=== PATIENT | male | born 1945 | race Caucasian/White ===

== ENCOUNTER → 2018-03-18 14:56 | Outpatient (CLI) | payer MEDICARE, MEDICAID, SELFPAY ==
--- NOTE | 2018-03-18 15:07 | RAD_ITS ---
STUDY: X-RAY - LUMBAR SPINE REASON FOR EXAM: Male, 72 years old. SHARP LOW BACK PAIN. NO INJURY TECHNIQUE: 4 view(s) of the lumbar spine were obtained. COMPARISON: None FINDINGS: Normal lumbar lordosis. There is scoliosis. There is a normal alignment of the vertebrae. There is bilateral facet arthropathy. There is multilevel endplate spondylosis of the lumbar vertebrae. There is multi-level degenerative disc disease with multi-level disc space narrowing. There are atherosclerotic vascular calcifications. The soft tissue structures are unremarkable. RAD/L/S Spine Min 4 Views IMPRESSION: Degenerative changes of the spine, as detailed above. Electronically Signed: Keenan Gannon MD at 16:35 EDT , Service support ,
== END ==
PROVIDERS: Family Provider Internal Medicine; PCP Internal Medicine; Visit Provider Nurse Practitioner Gerontology
DX: M47.896 Other spondylosis, lumbar region (principal); M51.36 Other intervertebral disc degeneration, lumbar region; M48.061 Spinal stenosis, lumbar region without neurogenic claudication
CPT/HCPCS: 72110

== ENCOUNTER → 2018-06-08 11:44 | Outpatient (CLI) | payer MEDICARE, MEDICAID, SELFPAY ==
--- NOTE | 2018-06-08 11:50 | RAD_ITS ---
STUDY: X-RAY CHEST REASON FOR EXAM: Male, 72 years old. 2 week history of cough. TECHNIQUE: Single AP portable view of the chest. COMPARISON: None. FINDINGS: Hyperinflation. Mild increased linear markings at the left lung base suggests underlying atelectasis and/or scarring. No focal infiltrate is seen. There is no demonstrated pleural abnormality. Normal size heart. Normal mediastinum and davis. Normal visualized pulmonary arteries. Normal visualized aortic arch and descending thoracic aorta. There are diffuse degenerative changes of the visualized thoracic spine. Normal visualized ribs, clavicles, and shoulders. There is no demonstrated abnormality of the visualized soft tissue structures of the upper abdomen. RAD/Chest 1 View IMPRESSION: Hyperinflation. Stable mild increased linear markings at the left lung base suggesting scarring. Electronically Signed: Tyree Oh MD at 12:47 EDT Tel [phone], Service support ,
== END ==
PROVIDERS: Family Provider Internal Medicine; PCP Internal Medicine; Visit Provider Nurse Practitioner
DX: J40 Bronchitis, not specified as acute or chronic (principal)
CPT/HCPCS: 71045

== ENCOUNTER → 2018-06-23 12:32 | Outpatient (CLI) | payer MEDICARE, MEDICAID, SELFPAY ==
[2018-06-23 13:11] LABS: PSA,Total - Annual Screen 3.02 ng/mL (0.00-4.00)
== END ==
PROVIDERS: Family Provider Internal Medicine; PCP Internal Medicine; Visit Provider Urology
DX: Z12.5 Encounter for screening for malignant neoplasm of prostate (principal)
CPT/HCPCS: 36415; 84153; G0103

== ENCOUNTER → 2019-03-23 07:50 | Outpatient (CLI) | payer MEDICARE, MEDICAID, SELFPAY ==
--- NOTE | 2019-03-23 10:28 | NEURO ---
NCS and/or EMG Patient Report Ordering Doctor: Halley Pickens DATE OF SERVICE: 03/23/19 This is a right lower extremity EMG and bilateral lower extremity nerve conduction study performed on this 73-year-old male with pain and muscle cramps in his legs below his knees bilaterally for approximately 1 year. He also describes numbness and tingling. He is healthy otherwise without a history of diabetes. There is a previous history of significant alcohol use however he discontinued this at least one year prior to the onset of his current symptoms. On brief neurologic examination he does have high arches with decreased sensation in his feet bilaterally symmetrically. Bilateral lower extremity sensory and motor nerve conduction studies performed. The sural sensory responses are normal. The motor conduction velocities are diffusely mild to moderately slowed, with mild to moderate prolongation of distal latencies and suppression of amplitudes. F-wave latencies from the tibial and common peroneal nerves bilaterally are mild to moderately prolonged and H reflex amplitudes are suppressed from the bilateral tibial nerves. Right lower extremity needlelike tomography is performed. Muscles evaluated included the extensor digitorum brevis, abductor hallucis, medial gastrocnemius, anterior tibialis, vastus medialis and vastus lateralis muscles. Peripheral muscles demonstrated early recruitment with large motor units but absence of pathologic spontaneous activity. More proximal muscles demonstrated resolution of these abnormalities with normal insertional activity, normal motor units, and normal recruitment pattern. 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 Further testing could include serum B12 levels, inflammatory markers, serum and urine protein electrophoresis, and hepatic function studies.
== END ==
PROVIDERS: Family Provider Internal Medicine; PCP Internal Medicine; Referring Provider Internal Medicine; Visit Provider Internal Medicine
DX: R20.2 Paresthesia of skin (principal)
CPT/HCPCS: 95886; 95910

== ENCOUNTER 2019-06-17 07:46 | Outpatient (RCR) | payer MEDICARE, MEDICAID, SELFPAY ==
--- NOTE | 2019-06-17 14:42 | HP.OTFCE.D ---
FCE D/C Summary - Discharge PHI PATEL was seen for a one time visit for an FCE on 06/17/19 and is discharged.
--- NOTE | 2019-06-17 14:42 | HP.OTFCE_ITS ---
HP OT Functional Capacity Eval - Task Lift Floor (Occasional 1-33% of Day): 30 Floor (Frequent 34-66% of Day): 15 Floor (Constant 67-100% of Day): negligible Floor PDL: Light Knee (Occasional 1-33% of Day): 25 Knee (Frequent 34-66% of Day): 12.5 Knee (Constant 67-100% of Day): negligible Knee PDL: Light Waist (Occasional 1-33% of Day): 25 Waist (Frequent 34-66% of Day): 12 Waist (Constant 67-100% of Day): negligible Waist PDL: Light Shoulder (Occasional 1-33% of Day): 15 Shoulder (Frequent 34-66% of Day): 8 Shoulder (Constant 67-100% of Day): negligible Shoulder PDL: Sedentary-Light Overhead (Occasional 1-33% of Day): negligible Overhead (Frequent 34-66% of Day): negligible Overhead (Constant 67-100% of Day): negligible Overhead PDL: Sedentary Comments: Based on performance with material handling tasks, Carlos exhibited increased compensations and 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 These mechanical deficits and compensations included increased observation of unequal load distribution, lateral leaning to left side, and general range of motion deficits. It would not be recommended he continues frequent lifting or material handling tasks at this time based on performance and compensation and deficits o bserved. - Work Activity/Posture Bending: Frequent Ability (34-66% of day) Squatting: Occasional Ability (1-33% of day) Comments: 1-10% Kneeling: No Ablility (0% of day) Comments: cannot compleetd safely Reaching out: Occasional Ability (1-33% of day) Reaching up: Occasional Ability (1-33% of day) Comments: Should avoid. Can complete but often completes one handed. Sitting: Frequent Ability (34-66% of day) Walking: Occasional Ability (1-33% of day) Standing: Frequent Ability (34-66% of day) - Reference Duration Sedentary Sedentary Light Light Light Medium Medium Medium Heavy Very Heavy Heavy Occasional (0-33% of day) Frequent (34-66% of day) Constant (67-100% of day) 10 # Negligible Negligible 15 # 8 # Negligible 20 # 10# Negli. 35 # 18 # 7 # 50 # 25 # 10 # 75 # 100 # >100 # 38 # 50 # >50 # 15 # 20 # >20 # - Patient Information Height: 1.83 m Weight:: 82.024 kg Hand Dominance: R BP (Medication Use/Usual Values per pt report): No - Medical History Medical History Including Restrictions: No medical restrictions given to him by his doctor. - Diagnoses Diagnoses: Current: Feels he has exhibit increase decline in function in right upper extremity s/p past orthopedic injury occurring in [facility]. Past Medical History: ulnar transposition, carpal tunnel; release R hand; arthritis, and chronic low back pain per patient report. Medications: - finasteride 5 mg. - doxazosin 4 mg. - tadalafil 5 mg - Symptoms Symptoms: Carlos is currently not on pain management progress. He takes over the counter pain medications as needed. Noted he has increased pain in right upper extremity. These pain symptoms include aching and sharp pains as well as decreased sensation for touch in right hand. - Pain Pain: Carlos noted that his pain in his right upper extremity is typically around a 6/10 pain. He noted that when it is at its worse it increased to 9/10 and does not go below a 5/10 pain. Irwin Pain Questionnaire is a self-report pain assessment to determine a patient?s accurate psychodynamics for accurate pain rating. A score of 30 or high indicates poor psychodynamics and the greater probability of decreased accuracy with accurate pain reporting. Pre- Irwin: 40. Post Irwin: 23. Based on the results of the Irwin questionnaire pain reporting is inconsistent. Fear Avoidance Questionnaire (FAQ) is a client self- report assessment for 18-64+ that has shown to be reliable and valid for determining increased fear with movements. A score of 96 or higher indicates inc reased fear avoidance behaviors. FAQ Pre-testing: - fear avoidance beliefs about work- items: 32. - fear avoidance about physical activity: 22. FAQ Post testing: - fear avoidance beliefs about work- items: 34. - fear avoidance about physical activity: 15. Disabilities of the Arm, Shoulder, and Hands is a questionnaire based assessment to determine a patients perception of perceived disabilities. Total point score: 94 which is equal to 53% disabilities of right upper extremity. 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 He noted ?he does what he can? and works when jobs come along. He further explained the last year and half he has not worked much at all. - Behavioral Behavioral: Arrived and was confused to why evaluation was needed. Therapist explained. He was cooperative, and compliant with all tasks. - ADLS ADLS: He lives in first floor apartment. He lives independently in apartment and completes all self-care tasks such as bathing, dressing, and general self-care. He completes all cooking, cleaning, and grocery shopping. He no longer completes lawn care activities but noted he can walk around the block for exercises but does not complete regularly. He no longer drives. He does care for two cats. - Physical Examination Physical Examination: The purpose of this functional capacity evaluation (FCE) was to determine Carlos?s physical ability. Aerobic limiting factor: 85% of max adjust HR= (220-age) *.85= 123 bpm. Calculated max weight: 60% of weight= 108 lbs. Begining Diagnostics: - blood pressure: 139/83 mmHg. - heart rate: 77 bpm. - oxygen: 97% ROM: Range of motion: Shoulder: - flexion: R 0-49, L 0-126. - extention: R 0- 0, L 0-49. - abudction: R 0-41, L 0-137. Elbow: - flexion R 18-105, L 20-129. forearm: - supination: R 0-20 , L 0-46. - pronation: R 0-67 ,L 0-75. Wrist. - flexion R 0-58, L 0-70. - extentsion R 0-12, L 0-48 Strength: Strength measurements completed with use of manual muscle testing and short arm access of dynamometer. Results are as follows: Upper Body: Shoulder flexion: -Dynamometer: R 10 , L 11.6 lbs. Shoulder extension: -Dynamometer: R 8.1 , L 12.6 lbs. Shoulder abduction: -Dynamometer: R 9.9 , L 12.1 lbs. Shoulder Internal Rotation: -Dynamometer: R 8.8 , L 13.1 lbs. Shoulder External Rotation: -Dynamometer: R 7.1 , L 13.2 lbs. Elbow flexion: -Dynam ometer: R 8.2 , L 17.5 lbs. Elbow extension: -Dynamometer: R 7.2 , L 21.1 lbs. Lower Body: -Dynamometer: R , L. Hip flexion: -Dynamometer: R 18.7 , L 22.4 lbs. Hip adduction: -Dynamometer: R 12.4 , L 17.4 lbs. Hip abduction: -Dynamometer: R 11.7 , L 12.1. Knee Flexion: -Dynamometer: R 33.1 , L 27.0. Knee extension: -Dynamometer: R 25.7 , L 23. 1 lbs. Plantarflexion: -Dynamometer: R 23.7 , L 24.3 lbs. Dorsiflexion: - Dynamometer: R 21.6 , L 15.7 lbs Right Turbine Mechanic Strength Average: 20.00 Left Turbine Mechanic Strength Average: 85.66 Right Lateral Pinch Average: 5.66 Right Lateral Pinch Percentile: below 10th Left Lateral Pinch Average: 16.00 Left Lateral Pinch Percentile: approximately 25th Right Tripod Pinch Average: 4.33 Right Tripod Pinch Percentile: below 10th Left Tripod Pinch Average: 10.33 Left Tripod Pinch Percentile: 10th Comments: Five Span Turbine Mechanic testing on Dynamometer: Position 1: R 10 , L 58. Position 2: R 23 , L 94. Position 3: R 30 , L 96. Position 4: R 30 , L 60. Position 5: R 30 , L 71. A coefficient of variation greater than 15 % indicated decreased consistency of effort. Coefficient of variation: R 35 %, L 24 %. Consistency of Effort: Although values indicate increased incosnsient effort it is believed the varying resultsa re due to decreased sensation in bilateral hands. Decreased touch sesnation can increased decreased cognos lead pressure need to measure strength. Sensation: Sensation testing completed on bilateral feet with monofilament touch test. A score of normal on touch test is 2.83 and within normal range with just some discrepancies for light touch is between 3.22-3.61. The higher the number in more complications related to patient?s ability to perceive touch related sensory stimuli. R hand: Thumb 4.08 ,2nd 4.08 , 3rd 4.17 , 4th 5.56 , 5th 6.45. L hand: Thumb 4.08 ,2nd 3.84 , 3rd 3.84 , 4th 3.84 , 5th 4.56. Decreased sensation at ulnar nerve intervention. Increased ulnar wasting noted on right hand. Fine Motor: Completed the Purdue Pegboard test to further determine the patient?s ability to complete 20-3 step tasks, assess fine motor control and general dexterity needed to complete assembly like work. The results are as follows: Right Hand: 2. -Percentile: Left Hand: 6. -Percentile. Both Hands: 4. -Percentile. R+ L+ Both: 12. -percentile: Assembly: 2. -percentile: Balance: Functional reach test is used to determine static balance in patients. A score of 15 is normal and less than 10 increases risk of falling. A score of 6 or less significantly increases a patient?s risk of falling. Deary 1: 11.5. Deary 2: 11.5. Deary 3: 12. Average: 11.6. Carlos exhibits good static standing balance. Functional Gait Assessment (FGA) is a dynamic balance test to determine vestibular functioning and general dynamic balance ability of patient 18-65+. This assessment can be used with clients of various backgrounds to determine functional dynamic balance needed to complete every day work related tasks. 1.Gait Level Surface:2. 2.Change in Gait Speed: 1. 3.Gait with horizontal head turns:1. 4.Gait with vertical head turns: 3. 5.Gait and pivot turn: 2. 6.Step over obstacle: 2. 7.Gait with narrow base of support: 2. 8.Ga it with eyes closed: 1. 9.Ambulating Backwards: 2. 10.Steps: 2. Total Score: 19 /maximum score 30. Carlos scored about one and half standard deviations below mean performane for dynamic balance for same age releated peers. - Non Material Handling Activities Bending: Heart rate prior to beginning with use of pulse oximeter: 81 bpm. 3x, 10x in 32 seconds, and 10x faster in 21 seconds. Completed bending with fair body mechanics. He completed full bend with minimal compensations of spinal alignment and integrity. No signs of pain behaviors noted. Heart rate posttest with use of pulse oximeter: 62 bpm. Perceived pain: 6/10 Squatting: Heart rate prior to beginning with use of pulse oximeter: 62. 3x, 10x in 33 seconds, and 10x faster in 19 seconds. Completed with mechanical changes an compensations of increased flexion of trunk to pcomor balance with movements. Compleetd 50 % of full squat. Compensations observed with task. Heart rate posttest with use of pulse oximeter: 91 bpm. Perceived pain: 6/10 Kneelinx. Completed with increased mechanical deficits noted and ability to complete 25% of full kneel. Fair body mechanics noted and increased intrinsc strength of hip through adduction obsered. Need for hand on right quadracep muscle to promote balance maddy oneil s left upper extremity compeletd balance relate dmovements. It would not be recommended he completed these type of movements at this time. Perceived pain: 6/10 - right upper extremtiy Reaching out/up: Heart rate prior to beginning with use of pulse oximeter: 82. Reaching out: Completed in standinx, 10x in 13 seconds, and 10x faster in 9 seconds. Heart rate posttest with use of pulse oximeter: 88 bpm. Perceived pain: 6-05/18 noted burning in right elbow. Reaching up: Completed in standing. 3x, 10x in 29 seconds, and 10x faster 23 seconds. Carlos was able to compleetd forward reaching with about 75 degrees of shoudler flexion. He noted increase dpain through right shoulder and elbow with task. Mechanical deficits noted in right upper extremtiy for overhead reaching. He is unabel to complete full range of motion over head with right upper extremity. Heart rate posttest with use of pulse oximeter: 91 bpm. percieved pain: 6/10 Walking: Heart rate prior to beginning with use of pulse oximeter: 83 bpm. Completed 15 minutes walking tasks around facility. Completed with mild antaglic gait to bilateral sides. Completed inside walking and outside tasks with good balance and set downs from curbs. Needed two minutes seated break after six minutes of walking. Noted on qustionnaire that he can typically walk for about 15 minutes prior to needing seated breka. Heart rate posttest with use of pulse oximeter: 90 bpm. oxygen at room air: 97%. Perceived pain: 7/10 Standing: Carlos able to tolerates static and dynamic standing tasks for 42 minutes prior to needing seated break whule compleetd tasks apart of the assessment. He used typically compensation movements of right to left sided shift during tasks. Able to complete frequent standing. Sitting: Carlos able to complete sitting during tasks for 45 minutes with movement as needed. Climbing Stairs: Heart rate prior to beginning with use of pulse oximeter: 80 bpm. Carlos exhibits ability tamia omplete one set of ten stairs with use of right side handrail. he exhibti reciporal foot pattern with mild antalgic gait to left lower extremity. Some shortness of breath noted post task from exertion. Heart rate posttest with use of pulse oximeter: 93 bpm. Perceived pain:6/10 in right upper extremity. oxyegen at room air with use of pulse oximeter: 98% - Dynamic Occasional Lifting Capacity Floor Lift: Heart rate prior to beginning with use of pulse oximeter: 80 bpm. Occasional Liftinx 30 lbs. Frequent liftinx 15 lbs. Poor mechanics of stright legs with increased thoracic spine flexion and cervical spine extenion. He completed lift with appropriate movement and weight distribution to BUE. Heart rate posttest with use of pulse oximeter: 89. Perceived pain: 6/10 Knee Lift: Heart rate prior to beginning with use of pulse oximeter: 86. Occasional Liftinx 25 lbs. Frequent liftinx 12.5 lbs. Carlos completed knee lift with fairbody mechanics. Increased industrial maintenance mechanic compensations noted with increased load distribution to left upper extremity. Soem pain behaviors observed with holding breath with lift. No increase in heart rate ot indicate increase in pain. Heart rate posttest with use of pulse oximeter: 89. Perceived pain: 6/10 Waist Lift: Heart rate prior to beginning with use of pulse oximeter: 87 bpm. Occasional Liftinx 25 lbs. Frequent liftinx 12 lbs. Completed with increased machnical deficits with limited flexion of right elbow for movemetn and load distribution during task. Fair body mechanics with decreased spinal alignment and mild twisting to place box. Pain behaviors observed with compensations and mechanical changes. WOuld not recommend completing repritive movements that require this type of lifting based on mechanical deficits and changes. Heart rate posttest with use of pulse oximeter: 85. Perceived pain: 6-7/10 Shoulder Lift: Heart rate prior to beginning with use of pulse oximeter: 90. Occasional Liftinx 15 lbs. Frequent liftinx 8 lbs lbs. Mechnical deficits and compensations noted with increased load distribution to left upper extremity. Decreased spinal alignment and increased compensations observed. With compensations it would not be reccommended he completed this type of lift regularly. Heart rate posttest with use of pulse oximeter: 96. Perceived pain: 7/10 Overhead Lift: Heart rate prior to beginning with use of pulse oximeter: 86. Occasional Liftinx 0 lbs. Frequent liftinx 0 lbs. Due to mechanical deficits he was unable to complete tasks. He attempted a coule of times with emchanical compensations of increased spinal extention observed. Poor body mechanics due to mechnical deficits. Heart rate posttest with use of pulse oximeter: 90. Perceived pain: /10 Carryin lbs occassionally only. Completed with 25 lbs with mechanical compensations of right side lateral leaning and drifiting during gait. Completed with fair body mechanics. Comments: As assessment continued, increased industrial maintenance mechanic compensationa nd deficits were observed with repeitive and material handling tasks. Ending Diagnostics: Heart rate 86 bpm. Oxygen at room temperature: 95%. Blood pressure: 139/79 mmHg
--- NOTE | 2019-06-24 10:32 | HP.FCE ---
HP OT Functional Capacity Eval Date of Evaluation: 06/17/19 - Task Lift Floor (Occasional 1-33% of Day): 30 Floor (Frequent 34-66% of Day): 15 Floor (Constant 67-100% of Day): negligible Floor PDL: Light Knee (Occasional 1-33% of Day): 25 Knee (Frequent 34-66% of Day): 12.5 Knee (Constant 67-100% of Day): negligible Knee PDL: Light Waist (Occasional 1-33% of Day): 25 Waist (Frequent 34-66% of Day): 12 Waist (Constant 67-100% of Day): negligible Waist PDL: Light Shoulder (Occasional 1-33% of Day): 15 Shoulder (Frequent 34-66% of Day): 8 Shoulder (Constant 67-100% of Day): negligible Shoulder PDL: Sedentary-Light Overhead (Occasional 1-33% of Day): negligible Overhead (Frequent 34-66% of Day): negligible Overhead (Constant 67-100% of Day): negligible Overhead PDL: Sedentary Comments: Based on performance with material handling tasks, 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 These mechanical deficits and compensations included increased observation of unequal load distribution, lateral leaning to left side, and general range of motion deficits. It would not be recommended he continues frequent lifting or material handling tasks at this time based on performance and compensation and deficits observed. - Work Activity/Posture Bending: Frequent Ability (34-66% of day) Squatting: Occasional Ability (1-33% of day) Comments: 1-10% Kneeling: No Ablility (0% of day) Comments: cannot complete safely Reaching out: Occasional Ability (1-33% of day) Reaching up: Occasional Ability (1-33% of day) Comments: Should avoid. Can complete but often completes one handed. Sitting: Frequent Ability (34-66% of day) Walking: Frequent Ability (34-66% of day) Standing: Frequent Ability (34-66% of day) - Reference Duration Sedentary Sedentary Light Light Light Medium Medium Medium Heavy Very Heavy Heavy Occasional (0-33% of day) Frequent (34-66% of day) Constant (67-100% of day) 10 # Negligible Negligible 15 # 8 # Negligible 20 # 10# Negli. 35 # 18 # 7 # 50 # 25 # 10 # 75 # 100 # >100 # 38 # 50 # >50 # 15 # 20 # >20 # - Patient Information Height: 1.83 m Weight:: 82.024 kg Hand Dominance: R BP (Medication Use/Usual Values per pt report): No - Medical History Medical History Including Restrictions: No medical restrictions given to him by his doctor. - Diagnoses Diagnoses: Current: Feels he has exhibit increase decline in function in right upper extremity s/p past orthopedic injury occurring in [facility]. Past Medical History: ulnar transposition, carpal tunnel; release R hand; arthritis, and chronic low back pain per patient report. Medications: - finasteride 5 mg. - doxazosin 4 mg. - tadalafil 5 mg - Symptoms Symptoms: Carlos is currently not on pain management progress. He takes over the counter pain medications as needed. Noted he has increased pain in right upper extremity. These pain symptoms include aching and sharp pains as well as decreased sensation for touch in right hand. - Pain Pain: Carlos noted that his pain in his right upper extremity is typically around a 6/10 pain. He noted that when it is at its worse it increased to 9/10 and does not go below a 5/10 pain. Irwin Pain Questionnaire is a self-report pain assessment to determine a patient?s accurate psychodynamics for accurate pain rating. A score of 30 or high indicates poor psychodynamics and the greater probability of decreased accuracy with accurate pain reporting. Pre- Irwin: 40. Post Irwin: 23. Based on the results of the [place]win questionnaire pain reporting is inconsistent. Fear Avoidance Questionnaire (FAQ) is a client self-report assessment for 18-64+ that has shown to be reliable and valid for determining increased fear with movements. A score of 96 or higher indicates increased fear avoidance behaviors. FAQ Pre-testing: - fear avoidance beliefs about work- items: 32. - fear avoidance about physical activity: 22. FAQ Post testing: - fear avoidance beliefs about work- items: 34. - fear avoidance about physical activity: 15. Disabilities of the Arm, Shoulder, and Hands is a questionnaire-based assessment to determine a patient?s perception of perceived disabilities. Total point score: 94 which is equal to 53% disabilities of right upper extremity. 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 He noted ?he does what he can? and works when jobs come along. He further explained the last year and half he has not worked much at all. - Behavioral Behavioral: Arrived and was confused to why evaluation was needed. Therapist explained. He was cooperative, and compliant with all tasks. - ADLS ADLS: He lives in first floor apartment. He lives independently in apartment and completes all self-care tasks such as bathing, dressing, and general self-care. He completes all cooking, cleaning, and grocery shopping. He no longer completes lawn care activities but noted he can walk around the block for exercises but does not complete regularly. He no longer drives. He does care for two cats. - Physical Examination Physical Examination: The purpose of this functional capacity evaluation (FCE) was to determine Carlos?s physical ability. Aerobic limiting factor: 85% of max adjust HR= (220-age) *.85= 123 bpm. Calculated max weight: 60% of weight= 108 lbs. Begining Diagnostics: - blood pressure: 139/83 mmHg. - heart rate: 77 bpm. - oxygen: 97% ROM: Range of motion: Shoulder: - flexion: R 0-49, L 0-126. - extention: R 0-0, L 0-49. - abudction: R 0-41, L 0-137. Elbow: - flexion R 18-105, L 20-129. forearm: - supination: R 0-20 , L 0-46. - pronation: R 0-67 ,L 0-75. Wrist. - flexion R 0-58, L 0-70. - extentsion R 0-12, L 0-48 Strength: Strength measurements completed with use of manual muscle testing and short arm access of dynamometer. Results are as follows: Upper Body: Shoulder flexion: -Dynamometer: R 10 , L 11.6 lbs. Shoulder extension: -Dynamometer: R 8.1 , L 12.6 lbs. Shoulder abduction: -Dynamometer: R 9.9 , L 12.1 lbs. Shoulder Internal Rotation: -Dynamometer: R 8.8 , L 13.1 lbs. Shoulder External Rotation: -Dynamometer: R 7.1 , L 13.2 lbs. Elbow flexion: -Dynamometer: R 8.2 , L 17.5 lbs. Elbow extension: -Dynamometer: R 7.2 , L 21.1 lbs. Lower Body: -Dynamometer: R , L. Hip flexion: -Dynamometer: R 18.7 , L 22.4 lbs. Hip adduction: -Dynamometer: R 12.4 , L 17.4 lbs. Hip abduction: -Dynamometer: R 11.7 , L 12.1. Knee Flexion: -Dynamometer: R 33.1 , L 27.0. Knee extension: -Dynamometer: R 25.7 , L 23. 1 lbs. Plantarflexion: -Dynamometer: R 23.7 , L 24.3 lbs. Dorsiflexion: -Dynamometer: R 21.6 , L 15.7 lbs. Tested positions proximally to joint. Right Dye Colorist Formulator Strength Average: 20.00 Left Dye Colorist Formulator Strength Average: 85.66 Right Lateral Pinch Average: 5.66 Right Lateral Pinch Percentile: below 10th Left Lateral Pinch Average: 16.00 Left Lateral Pinch Percentile: approximately 25th Right Tripod Pinch Average: 4.33 Right Tripod Pinch Percentile: below 10th Left Tripod Pinch Average: 10.33 Left Tripod Pinch Percentile: 10th Comments: Five Span Dye Colorist Formulator testing on Dynamometer: Position 1: R 10 , L 58. Position 2: R 23 , L 94. Position 3: R 30 , L 96. Position 4: R 30 , L 60. Position 5: R 30 , L 71. A coefficient of variation greater than 15 % indicated decreased consistency of effort. Coefficient of variation: R 35 %, L 24 %. Consistency of Effort: Although values indicate increased inconsistent effort it is believed the varying results are due to decreased sensation in bilateral hands. Decreased touch sensation can increased decreased fish hatchery specialist pressure need to measure strength. Sensation: Sensation testing completed on bilateral feet with monofilament touch test. A score of normal on touch test is 2.83 and within normal range with just some discrepancies for light touch is between 3.22-3.61. The higher the number in more complications related to patient?s ability to perceive touch related sensory stimuli. R hand: Thumb 4.08 ,2nd 4.08 , 3rd 4.17 , 4th 5.56 , 5th 6.45. L hand: Thumb 4.08 ,2nd 3.84 , 3rd 3.84 , 4th 3.84 , 5th 4.56. Decreased sensation at ulnar nerve intervention areas. Increased ulnar wasting noted on right hand. Fine Motor: Completed the Purdue Pegboard test to further determine the patient?s ability to complete 2-3 step tasks, assess fine motor control and general dexterity needed to complete assembly like work. The results are as follows: Right Hand: 2. -Percentile: 1st. Left Hand: 6. -Percentile: 2nd. Both Hands: 4. -Percentile: 1st. R+ L+ Both: 12. -percentile: below 5th. Assembly: 2. -percentile: below 1st Balance: Functional reach test is used to determine static balance in patients. A score of 15 is normal and less than 10 increases risk of falling. A score of 6 or less significantly increases a patient?s risk of falling. [place] 1: 11.5. [place] 2: 11.5. [place] 3: 12. Average: 11.6. Carlos exhibits good static standing balance. Functional Gait Assessment (FGA) is a dynamic balance test to determine vestibular functioning and general dynamic balance ability of patient 18-65+. This assessment can be used with clients of various backgrounds to determine functional dynamic balance needed to complete every day work related tasks. 1.Gait Level Surface:2. 2.Change in Gait Speed: 1. 3.Gait with horizontal head turns:1. 4.Gait with vertical head turns: 3. 5.Gait and pivot turn: 2. 6.Step over obstacle: 2. 7.Gait with narrow base of support: 2. 8.Gait with eyes closed: 1. 9.Ambulating Backwards: 2. 10.Steps: 2. Total Score: 19 /maximum score 30. Carlos scored about one and half standard deviations below mean performance for dynamic balance for same age related peers. - Non Material Handling Activities Bending: Heart rate prior to beginning with use of pulse oximeter: 81 bpm. 3x, 10x in 32 seconds, and 10x faster in 21 seconds. Completed bending with fair body mechanics. He completed full bend with minimal compensations of spinal alignment and integrity. No signs of pain behaviors noted. Heart rate posttest with use of pulse oximeter: 62 bpm. Perceived pain: 6/10 Squatting: Heart rate prior to beginning with use of pulse oximeter: 62. 3x, 10x in 33 seconds, and 10x faster in 19 seconds. Completed with mechanical changes and compensations of increased flexion of trunk to promote balance with movements. Completed 50 % of full squat. Compensations observed with task. Heart rate posttest with use of pulse oximeter: 91 bpm. Perceived pain: 6/10 Kneelinx. Completed with increased mechanical deficits noted and ability to complete 25% of full kneel. Fair body mechanics noted and increased intrinsic strength of hip through adduction observed. Need for hand on right quadricep muscle to promote balance as well as left upper extremity completed balance related movements. It would not be recommended he completed these types of movements at this time. Perceived pain: 6/10 - right upper extremity Reaching out/up: Heart rate prior to beginning with use of pulse oximeter: 82. Reaching out from standinx, 10x in 13 seconds, and 10x faster in 9 seconds. Heart rate posttest with use of pulse oximeter: 88 bpm. Perceived pain: 6-7/10 noted burning in right elbow. Reaching up: Completed in standing. 3x, 10x in 29 seconds, and 10x faster 23 seconds. Carlos was able to complete forward reaching with about 75 degrees of shoulder flexion. He noted increased pain through right shoulder and elbow with task. Mechanical deficits noted in right upper extremity for overhead reaching. He is unable to complete full range of motion over head with right upper extremity. Heart rate posttest with use of pulse oximeter: 91 bpm. perceived pain: 6/10 Walking: Heart rate prior to beginning with use of pulse oximeter: 83 bpm. Completed 15 minutes walking tasks around facility. Completed with mild antalgic gait to bilateral sides. Completed inside walking and outside tasks with good balance and set downs from curbs. Needed two minutes seated break after six minutes of walking. Noted on questionnaire that he can typically walks for about 15 minutes prior to needing seated break. Heart rate posttest with use of pulse oximeter: 90 bpm. oxygen at room air: 97%. Perceived pain: 7/10 Standing: Carlos able to tolerates static and dynamic standing tasks for 42 minutes prior to needing seated break while completed tasks apart of the assessment. He used typically compensation movements of right to left sided shift during tasks. Able to complete frequent standing. Sitting: Carlos able to complete sitting during tasks for 45 minutes with movement as needed. Climbing Stairs: Heart rate prior to beginning with use of pulse oximeter: 80 bpm. Carlos exhibits ability to complete one set of ten stairs with use of right-side handrail. He exhibits reciprocal foot pattern with mild antalgic gait to left lower extremity. Some shortness of breath noted post task from exertion. Heart rate posttest with use of pulse oximeter: 93 bpm. Perceived pain:6/10 in right upper extremity. oxygen at room air with use of pulse oximeter: 98% - Dynamic Occasional Lifting Capacity Floor Lift: Heart rate prior to beginning with use of pulse oximeter: 80 bpm. Occasional Liftinx 30 lbs. Frequent liftinx 15 lbs. Poor mechanics of straight legs with increased thoracic spine flexion and cervical spine extension. He completed lift with appropriate movement and weight distribution to BUE. Heart rate increased based on exertion. Heart rate posttest with use of pulse oximeter: 89. Perceived pain: 6/10 Knee Lift: Heart rate prior to beginning with use of pulse oximeter: 86. Occasional Liftinx 25 lbs. Frequent liftinx 12.5 lbs. Carlos completed knee lift with fair body mechanics. Increased mechanical compensations noted with increased load distribution to left upper extremity. Some pain behaviors observed with holding breath with lift. No increase in heart rate to indicate increase in pain. Heart rate posttest with use of pulse oximeter: 89. Perceived pain: 6/10 Waist Lift: Heart rate prior to beginning with use of pulse oximeter: 87 bpm. Occasional Liftinx 25 lbs. Frequent liftinx 12 lbs. Completed with increased mechanical deficits with limited flexion of right elbow for movement and load distribution during task. Fair body mechanics with decreased spinal alignment and mild twisting to place box. Pain behaviors observed with compensations and mechanical changes. Would not recommend completing repetitive movements that require this type of lifting based on mechanical deficits and changes observed to increased load distributions of left upper extremity. Heart rate posttest with use of pulse oximeter: 85. Perceived pain: 6-7/10 Shoulder Lift: Heart rate prior to beginning with use of pulse oximeter: 90. Occasional Liftinx 15 lbs. Frequent liftinx 8 lbs lbs. Mechanical deficits and compensations noted with increased load distribution to left upper extremity. Decreased spinal alignment and increased compensations observed. With compensations it would not be recommended he completed this type of lift regularly. Heart rate posttest with use of pulse oximeter: 96. Perceived pain: 7/10 Overhead Lift: Heart rate prior to beginning with use of pulse oximeter: 86. Occasional Liftinx 0 lbs. Frequent liftinx 0 lbs. Due to mechanical deficits he was unable to complete tasks. He attempted a couple of times with mechanical compensations of increased spinal extension observed. Poor body mechanics due to mechanical deficits. Heart rate posttest with use of pulse oximeter: 90. Perceived pain: 7/10 Carryin lbs occasionally only. Completed with 25 lbs with mechanical compensations of right-side lateral leaning and drifting during gait. Completed with fair body mechanics. Comments: As assessment continued, increased mechanical compensations and deficits were observed with repetitive and material handling tasks with right upper extremity. Ending Diagnostics: Heart rate 86 bpm. Oxygen at room temperature: 95%. Blood pressure: 139/79 mmHg
== END 2019-06-17 19:00 | disposition home or self-care (01) ==
LOC: OT 07:46
PROVIDERS: Family Provider Internal Medicine; PCP Internal Medicine; Referring Provider Internal Medicine; Visit Provider Internal Medicine
DX: R29.898 Other symptoms and signs involving the musculoskeletal system (principal)
CPT/HCPCS: 97750

== ENCOUNTER → 2019-08-15 11:05 | Outpatient (CLI) | payer MEDICARE, MEDICAID, SELFPAY ==
--- NOTE | 2019-08-15 11:11 | CT_ITS ---
EXAM DESCRIPTION: CTA of the head with and without IV contrast CLINICAL HISTORY: 73 years Male, peripheral vision loss for week COMPARISON: Previous MRI of the head obtained on 02/02/2017 TECHNIQUE: A CTA of the Head and Neck was performed first without than with IV contrast, in the axial plane. Multiplanar CT reconstruction images were performed and later 3D volumetric reconstruction images were obtained This exam was performed according to our departmental dose-optimization program, which includes automated exposure control, adjustment of the mA and/or kV according to patient size and/or use of iterative reconstruction technique. FINDINGS: The pre and post contrast CT images of the head were obtained and reviewed. The randy, medulla, and cerebellum appear to be normal. The cerebral hemispheres and the ventricles and cerebral sulci are normal. The basal ganglia are normal. No enhancing masses or lesions are seen. Bone scanning windows were reviewed and show the inner and outer tables of the skull to be intact. The frontal, ethmoid, maxillary, and sphenoid sinuses are normal. Post contrast CTA images were then reviewed. Posterior Cerebral Circulation: The V4 segments of the vertebral arteries are normal bilaterally. The basilar artery is normal. The [right and left] anterior inferior cerebellar artery is normal. The anterior superior cerebellar arteries are seen at their origins and are normal. The P1, P2, and P3 segments of the [right and left] posterior cerebral arteries are normal. Anterior Cerebral Circulation: The cavernous and supraclinoid carotid arteries are normal. The A1 segments of the [right and left] anterior cerebral arteries are normal. The anterior communicating artery are normal. The M1 segments of the [right and left] cerebral arteries are normal. The bifurcations of the middle cerebral arteries are normal. Cerebral Venous Circulation: The superior sagital sinus is normal. The inferior sagital sinus is normal. The internal cerebral veins, great vein of Bob, straight sinus, and torcula are normal. The transverse sinuses and sigmoid sinuses are normal. CT/CTA Head W/WO Contrast IMPRESSION: Normal CTA of the Head Electronically Signed: Jozef Yobani, at 12:35 EDT Tel , Service support ,
[2019-08-15 11:36] LABS: CREATININE FINGERSTICK 0.7 mg/dL (0.70-1.30); EGFR FINGERSTICK > 60.0000 mL/min (>60)
[2019-08-15 12:42] LABS: Erythrocyte Sedimentation Rate 7 mm/hr (0-20)
[2019-08-15 12:45] LABS: Absolute Lymphocyte Count 1.61 X10^3/uL (0.83-4.51); Absolute Neutrophil Count 2.3 X10^3/uL (2.0-7.7); Basophil# 0.01 X10^3/uL; Basophil% 0.2 % (0-1); Eosinophil# 0.01 X10^3/uL; Eosinophils% 0.2 % (0-5); Hematocrit 45.8 % (40-54); Hemoglobin 15.3 g/dL (13.0-16.5); Lymphocyte # 1.61 X10^3/ul (4.0); Lymphocyte % 36.9 % (19-41); Mean Corp Hgb Conc 33.4 g/dL (32-36); Mean Corpuscular Hgb 31.5 pg (27.0-32.0); Mean Corpuscular Volume 94.4 fL (80-94); Mean Platelet Vol. 9.7 fl (6.2-12.0); Monocyte# 0.39 X10^3/uL; Monocyte% 8.9 % (0-10); NRBC Flagged by Analyzer 0 % (0-5); Neutrophil # 2.33 X10^3/uL (2.7-7.7); Neutrophil % 53.6 % (47-70); Platelet Count 171 K/mm3 (150-450); RBC Distribution Width CV 13.5 % (11.6-14.6); RBC Distribution Width SD 47.1 fl (35.1-43.9); Red Blood Count 4.85 M/mm3 (4.6-6.2); White Blood Count 4.4 K/mm3 (4.4-11.0)
[2019-08-15 13:30] LABS: ALB/GLOB Ratio 1.1 RATIO (0.9-2.4); AST(SGOT) 13 U/L (15-37); Alanine Aminotransfer ALT/SGPT 20 U/L (16-61); Albumin, Serum 3.9 g/dL (3.2-5.0); Alkaline Phosphatase 69 U/L (45-117); Anion Gap 7 (5-15); BUN 16 mg/dL (7-18); BUN/Creat Ratio 20.3 RATIO (10-20); CRP < 2.90 mg/L (0.0-3.0); Calcium,Total 8.6 mg/dL (8.5-10.1); Chloride 105 mmol/L (98-107); Creatinine, Serum 0.79 mg/dL (0.70-1.30); EST Glomerular Filtration Rate 102 mL/min (>60); Est Glom Filt Rate - Afr Amer 123 mL/min (>60); Globulin 3.5 g/dL (2.2-4.2); Glucose 87 mg/dL (74-106); Protein, Total 7.4 g/dL (6.4-8.2); Sodium Level 139 mmol/L (136-145)
== END ==
PROVIDERS: Family Provider Internal Medicine; PCP Internal Medicine; Referring Provider Internal Medicine; Visit Provider Internal Medicine
DX: H53.451 Other localized visual field defect, right eye (principal); R42 Dizziness and giddiness
CPT/HCPCS: 36415; 70496; 80053; 85025; 85652; 86140; Q9967

== ENCOUNTER → 2019-10-31 10:45 | Outpatient (CLI) | payer MEDICARE, MEDICAID, SELFPAY ==
[2019-10-31 11:48] LABS: PSA,Total - Annual Screen 2.76 ng/mL (0.00-4.00)
== END ==
PROVIDERS: Family Provider Internal Medicine; PCP Internal Medicine; Referring Provider Urology; Visit Provider Urology
DX: Z12.5 Encounter for screening for malignant neoplasm of prostate (principal)
CPT/HCPCS: 36415; 84153; G0103

== ENCOUNTER → 2021-07-10 14:02 | Outpatient (CLI) | payer MEDICARE, MEDICAID, SELFPAY | PROVIDERS: PCP Internal Medicine; Referring Provider Nurse Practitioner Adult Health; Visit Provider Nurse Practitioner Adult Health | DX: R30.0 Dysuria (principal) | CPT/HCPCS: 87086 ==

== ENCOUNTER 2022-03-17 12:45 | Emergency (ER) | payer MEDICARE, MEDICAID, SELFPAY ==
[2022-03-17] VITALS (7 sets, daily range): BP systolic 146; BP diastolic 71; PULSE 81–100; RESP 18–24; TEMP 36.6; O2SAT 95–97; BMI 25.7
--- NOTE | 2022-03-17 13:19 | RAD_ITS ---
STUDY: X-RAY CHEST REASON FOR EXAM: Male, 76 years old. Shortness of breath. TECHNIQUE: Single AP portable view of the chest. COMPARISON: Comparison is made with prior study dated 06/08/2018. FINDINGS: There is a faint 1.6 x 1.6cm noncalcified nodule in the mid lateral aspect of the left upper lobe. Mild increased markings at the left lung base suggestive of scarring and/or atelectatic There is no demonstrated pleural abnormality. Normal size heart. Normal mediastinum and davis. Normal visualized pulmonary arteries. Normal visualized aortic arch and descending thoracic aorta. There are diffuse degenerative changes of the visualized thoracic spine. Normal visualized ribs, clavicles, and shoulders. There is no demonstrated abnormality of the visualized soft tissue structures of the upper abdomen. RAD/Chest 1 View (Portable) IMPRESSION: There is a new 1.6 cm x 1 0.6 mL noncalcified nodule in the lateral aspect of the left upper lobe. CT scan is recommended. Increased markings at the left lung base suggesting atelectasis and/or scarring. Electronically Signed: Tyree Oh MD at 14:27 EDT ,
--- NOTE | 2022-03-17 13:19 | EKG12_ITS ---
Test Reason : SOB Blood Pressure : / mmHG Vent. Rate : 074 BPM Atrial Rate : 074 BPM P-R Int : 156 ms QRS Dur : 098 ms QT Int : 388 ms P-R-T Axes : 068 070 067 degrees QTc Int : 430 ms Normal sinus rhythm Normal ECG Confirmed by STEW SEN, CLARA ([id number]), manager editorial MORGAN HERNANDEZ ([id number]) on 03/18/2022 1:19:01 PM Referred By: KELSEY Confirmed By:CLARA MATHIAS MD
[2022-03-17] MEDS: Ipratropium/Albuterol Sulfate 3 ML AMPUL.NEB INHALATION (13:48)
[2022-03-17 14:05] LABS: Absolute Lymphocyte Count 1.08 X10^3/uL (0.83-4.51); Absolute Neutrophil Count 3.3 X10^3/uL (2.0-7.7); Hemoglobin 13.5 g/dL (13.0-16.5); Lymphocyte # 1.08 X10^3/ul (0.83-4.51); Lymphocyte % 22.1 % (19-41); Mean Corp Hgb Conc 33.8 g/dL (32-36); Mean Corpuscular Hgb 30.9 pg (27.0-32.0); Mean Corpuscular Volume 91.5 fL (80-94); Mean Platelet Vol. 9.1 fl (6.2-12.0); Monocyte# 0.53 X10^3/uL; Monocyte% 10.8 % (0-10); NRBC Flagged by Analyzer 0 % (0-5); Neutrophil # 3.27 X10^3/uL (2.7-7.7); Neutrophil % 66.9 % (47-70); Platelet Count 198 K/mm3 (150-450); RBC Distribution Width CV 14.2 % (11.6-14.6); RBC Distribution Width SD 47.8 fl (35.1-43.9); Red Blood Count 4.37 M/mm3 (4.6-6.2); White Blood Count 4.9 K/mm3 (4.4-11.0)
[2022-03-17 14:29] LABS: ALB/GLOB Ratio 0.8 RATIO (0.9-2.4); AST(SGOT) 24 U/L (15-37); Alanine Aminotransfer ALT/SGPT 34 U/L (16-61); Albumin, Serum 3.3 g/dL (3.2-5.0); Alkaline Phosphatase 90 U/L (45-117); Anion Gap 5 (5-15); BUN 7 mg/dL (7-18); BUN/Creat Ratio 8.9 RATIO (10-20); Calcium,Total 8.9 mg/dL (8.5-10.1); Chloride 101 mmol/L (98-107); Creatinine, Serum 0.79 mg/dL (0.70-1.30); EST Glomerular Filtration Rate 101 mL/min (>60); Est Glom Filt Rate - Afr Amer 123 mL/min (>60); Estimated Creatinine Clearance 70.78 ml/min; Globulin 4.2 g/dL (2.2-4.2); Glucose 99 mg/dL (74-106); Potassium 3.9 mmol/L (3.5-5.1); Protein, Total 7.5 g/dL (6.4-8.2); Sodium Level 134 mmol/L (136-145); Troponin-I HS 67 pg/mL (3.0-78.0)
[2022-03-17 14:31] LABS: BNP,B-Type NATRIURETIC PEPTIDE 11.8 pg/mL (0-100)
--- NOTE | 2022-03-17 14:34 | CT_ITS ---
STUDY: CT CHEST WITHOUT CONTRAST REASON FOR EXAM: Male, 76 years old. Lung nodule RADIATION DOSAGE (If Supplied By Facility): CTDIvol = ( 8.87 ) mGy, DLP = ( 344.13 ) mGycm TECHNIQUE: Transaxial imaging was performed without the administration of intravenous contrast material. Multiplanar coronal and sagittal images were reformatted. Individualized dose optimization techniques were used for this CT. COMPARISON: No relevant priors. FINDINGS: CHEST There is a 1.7 cm x 1.5 cm noncalcified nodule in the lateral aspect of the left upper lobe as seen on axial image #56. There is also evidence of a 1.2 cm x 1 cm noncalcified nodule in the posterior lateral aspect of the right lower lobe as seen on axial image #95. Mild degree of emphysematous changes slightly more prominent in the upper lobes. Increased linear markings at the right lung base. This may represent a focal area of scarring. There is no demonstrated pleural abnormality. There are calcifications of the coronary arteries. Normal mediastinum. Normal hilar regions. There is prominence of the pulmonary hilar arteries without peripheral pulmonary vascular congestion, suggesting pulmonary hypertension. Normal aorta arch and descending thoracic aorta. There are multi-level degenerative changes of the thoracic spine. There is no demonstrated abnormality of the visualized upper abdomen. CT/Chest without Contrast IMPRESSION: 1.7 cm x 1.5 solid noncalcified nodule in the lateral aspect of the left upper lobe as well as a 1.2 cm x 1 cm noncalcified nodule in the posterolateral aspect of the right lower lobe. Mild degree of emphysematous changes. Prominence of the central pulmonary arteries. Electronically Signed: Tyree Oh MD at 15:16 EDT ,
--- NOTE | 2022-03-17 14:35 | ED.VIS.DYS ---
HPI History of Present Illness Chief Complaint: Shortness of Breath Narrative Narrative: Patient presents with cough and congestion and some dyspnea for the past few days. He is a smoker, he has no recent fevers or chills. No recent weight loss. No night sweats. No hemoptysis. 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, bilateral Pneumonia Polyneuropathy Prostatocystitis Pulmonary hypertension Scoliosis Sinusitis Tinnitus of left ear Vitamin B12 deficiency Home Medications Doxazosin Mesylate 1 tab PO DAILY 05/13/14 [History Last Taken Unknown] finasteride 1 tab PO DAILY 05/13/14 [History Last Taken Unknown] tadalafil 5 mg PO DAILY 06/08/19 [History Last Taken Unknown] doxycycline hyclate 100 mg PO BID #20 tab 03/17/22 [Rx Last Taken Unknown] prednisone 60 mg PO DAILY #12 tab 03/17/22 [Rx Last Taken Unknown] Allergy/AdvReac Type Severity Reaction Status Date / Time No Known Allergies Allergy Verified 03/17/22 12:49 Family History Other Diabetes Social History Smoking Status: Current every day smoker tobacco type: cigarettes ROS ROS ED ROS Narrative Past medical history: Reviewed, consistent with COPD,Anxiety, bilateral knee pain, dermatitis, depression, eczema, hemorrhoids, hyperlipidemia, pneumonia, pulmonary hypertension noted. Medications: Reviewed Social history: Noncontributory Review of systems: All systems negative except as indicated General: No fever Eyes: No visual changes ENT: No upper airway congestion, normal voice Neck: No neck pain Cardiovascular: No chest pain Respiratory: No shortness of breath or cough Gastrointestinal: No abdominal pain, nausea vomiting or diarrhea Genitourinary: No dysuria Musculoskeletal: Denies myalgias no difficulty with ambulation Skin: No rash Neurological: No memory loss, confusion or any focal weakness Psych: No recent behavioral changes Hematologic: No easy bleeding or easy bruising EXAM Physical Exam Narrative Exam Narrative: Physical exam General: Patient appears chronically ill he appears relatively comfortable in the bed. Head: Normocephalic, Atraumatic Eyes: Conjunctiva not pale ENT: Moist mucous membranes Neck: Supple, Nontender, No lymphadenopathy Cardiovascular: Regular rate, Regular rhythm Respiratory: Bilateral end expiratory wheezing. He is not tachypneic he is speaking in full sentences. There is no retractions. He appears relatively comfortable. He is saturating in the mid to high 90s. Abdomen: Soft, Nontender, Nondistended Back: Nontender, Normal Inspection. Negative for: CVA tenderness Extremities: Nontender, No edema Skin: Normal color, No rash Neurological: Alert, Normal Strength, Normal Sensation Psychological: Normal affect Const Vital Signs: 03/17/22 12:46 03/17/22 12:49 03/17/22 13:58 Temperature 98 F 98 F Temperature Source Temporal Temporal Pulse Rate 100 100 88 Respiratory Rate 18 18 24 H Respiratory Effort Blood Pressure 146/71 H 146/71 H Blood Pressure Mean 96 96 Pulse Ox 97 97 95 Oxygen Delivery Method Room Air Room Air Room Air 03/17/22 14:11 03/17/22 15:25 Temperature Temperature Source Pulse Rate 81 Respiratory Rate 20 H Respiratory Effort Normal Blood Pressure Blood Pressure Mean Pulse Ox 96 Oxygen Delivery Method Room Air Room Air MDM MDM MDM Narrative Medical decision making narrative: Patient has an unremarkable work-up other than lung nodules, I will refer to pulmonology, at this time he appears well he is not desaturating, he improved after his DuoNeb treatment. I will treat him with steroids, antibiotics since he has a productive cough as well as an inhaler. He was strongly encouraged to quit smoking Lab Data Labs: Laboratory Results - last 24 hr 03/17/22 03/17/22 03/17/22 13:55 13:55 13:55 WBC 4.9 RBC 4.37 L Hgb 13.5 Hct 40.0 MCV 91.5 MCH 30.9 MCHC 33.8 RDW Std Deviation 47.8 H RDW Coeff of Eliseo 14.2 Plt Count 198 MPV 9.1 Immature Gran % (Auto) 0.200 Neut % (Auto) 66.9 Lymph % (Auto) 22.1 [place] % (Auto) 10.8 H Eos % (Auto) 0.0 Baso % (Auto) 0.0 Absolute Neuts (auto) 3.3 Absolute Lymphs (auto) 1.08 Nucleated RBC % 0 Sodium 134 L Potassium 3.9 Chloride 101 Carbon Dioxide 28.0 Anion Gap 5 BUN 7 Creatinine 0.79 Estim Creat Clear Calc 70.78 Est GFR (MDRD) Af Amer 123 Est GFR (MDRD) Non-Af 101 BUN/Creatinine Ratio 8.9 L Glucose 99 Calcium 8.9 Total Bilirubin 1.40 H AST 24 ALT 34 Alkaline Phosphatase 90 Troponin I High Sens 67 B-Natriuretic Peptide 11.8 Total Protein 7.5 Albumin 3.3 Globulin 4.2 Albumin/Globulin Ratio 0.8 L Radiography Diagnostic Testing: Clinical Impression(s) from Imaging Studies Chest X-Ray 03/17/22 13:19 IMPRESSION: There is a new 1.6 cm x 1 0.6 mL noncalcified nodule in the lateral aspect of the left upper lobe. CT scan is recommended. Increased markings at the left lung base suggesting atelectasis and/or scarring. Electronically Signed: Tyree Oh MD at 14:27 EDT , Chest CT 03/17/22 14:34 IMPRESSION: 1.7 cm x 1.5 solid noncalcified nodule in the lateral aspect of the left upper lobe as well as a 1.2 cm x 1 cm noncalcified nodule in the posterolateral aspect of the right lower lobe. Mild degree of emphysematous changes. Prominence of the central pulmonary arteries. Electronically Signed: Tyree Oh MD at 15:16 EDT , Chest x-ray read by me does not show any pneumonia. Radiologist did noticed a nodule. Discharge Plan Triage Chief Complaint: Shortness of Breath ED Provider: Nathan Ortega Dx/Rx/DC Orders Clinical Impression: COPD exacerbation, Acute dyspnea Instructions: ED COPD Flare Prescriptions: New doxycycline hyclate 100 mg tablet 100 mg PO BID Qty: 20 RF: 0 prednisone 20 mg tablet 60 mg PO DAILY Qty: 12 RF: 0 No Action finasteride 5 MG tablet 1 tab PO DAILY RF: 0 Doxazosin Mesylate 4 MG 1 tab PO DAILY RF: 0 tadalafil 5 MG tablet 5 mg PO DAILY RF: 0 Primary Care Provider: Halley Pickens Referrals: Boo Fernandez MD [STAFF PHYSICIAN] - 2 Days Halley Pickens DO [Primary Care Provider] - 2 Days Disposition Disposition: Home, Self Care
[2022-03-17] MEDS: predniSONE 20 MG Tablet 60 MG PO (15:27)
--- NOTE | 2022-04-14 09:12 | CCN.REFER ---
AGREEABLE TO CCN.
--- NOTE | 2022-05-09 09:42 | CCN.REFER ---
PATIENT ORIGINALLY AGREED ON 04/14 TO [facility]. HAND FILER BALANCE WHEEL ATTEMPTED TO REACH PATIENT MULTIPLE TIMES WITH NO RETURNED CALL TO ARRANGE HOME VISIT.
== END 2022-03-17 16:24 | disposition home or self-care (01) ==
PROVIDERS: Emergency Provider Emergency Medicine; PCP Internal Medicine; Visit Provider Emergency Medicine
DX: J44.1 Chronic obstructive pulmonary disease with (acute) exacerbation (principal); F17.210 Nicotine dependence, cigarettes, uncomplicated
CPT/HCPCS: 71045; 71250; 80053; 83880; 84484; 85025; 87811; 93005; 94640; 99283; A4216

== ENCOUNTER → 2022-07-31 | Outpatient (CLI) | payer MEDICARE, MEDICAID, SELFPAY ==
[2022-07-31 15:12] LABS: Mucous, Urine 0 SEEN /hpf (<or=2+); Red Blood Cells-Urine 0 SEEN /hpf (0-5)
[2022-07-31 15:37] LABS: Color, Urine Yellow (Yellow); Glucose, Dipstick Normal (Normal); Ketone-Dipstick Negative (Negative); Leukocyte Esterase-Dipstick 25 /ul (Negative); Nitrite-Dipstick Negative (Negative); Occult Blood-Urine Negative /ul (Negative); Protein-Dipstick Negative (Negative); Urine Bilirubin Dipstick Negative (Negative); Urine Clarity Clear (Clear); Urine Urobilinogen Normal (Normal); Urine pH 6.5 (5.0 - 8.0)
[2022-07-31 15:47] LABS: Bacteria RARE /hpf (None Seen); Squamous Epithelial Cells - UA 0-5 SEEN /hpf (0-5); White Blood Cells 0-5 SEEN /hpf (0-5)
[2022-07-31 15:48] LABS: Absolute Lymphocyte Count 1.85 X10^3/uL (0.83-4.51); Absolute Neutrophil Count 1.1 X10^3/uL (2.0-7.7); Hemoglobin 14.6 g/dL (13.0-16.5); Lymphocyte # 1.85 X10^3/ul (0.83-4.51); Lymphocyte % 56.6 % (19-41); Mean Corp Hgb Conc 33.2 g/dL (32-36); Mean Corpuscular Hgb 31.3 pg (27.0-32.0); Mean Corpuscular Volume 94.2 fL (80-94); Mean Platelet Vol. 9.3 fl (6.2-12.0); Monocyte# 0.34 X10^3/uL; Monocyte% 10.4 % (0-10); NRBC Flagged by Analyzer 0 % (0-5); Neutrophil # 1.07 X10^3/uL (2.7-7.7); Neutrophil % 32.7 % (47-70); Platelet Count 188 K/mm3 (150-450); RBC Distribution Width CV 13.5 % (11.6-14.6); RBC Distribution Width SD 46.7 fl (35.1-43.9); Red Blood Count 4.67 M/mm3 (4.6-6.2); White Blood Count 3.3 K/mm3 (4.4-11.0)
[2022-07-31 16:05] LABS: Microalbumin,Random Urine 9.7 mg/L (NO RANGE EST.); Microalbumin:Creatinine Ratio 9.3 mg/g CRE (<30 mg/g CRE)
[2022-07-31 16:49] LABS: Vitamin B12 457 pg/mL (211-911); Vitamin D,25 Hydroxy 52.8 ng/mL
[2022-07-31 17:12] LABS: ALB/GLOB Ratio 0.9 RATIO (0.9-2.4); AST(SGOT) 17 U/L (15-37); Alanine Aminotransfer ALT/SGPT 23 U/L (16-61); Albumin, Serum 3.7 g/dL (3.2-5.0); Alkaline Phosphatase 76 U/L (45-117); Anion Gap 4 (5-15); BUN 13 mg/dL (7-18); BUN/Creat Ratio 14.8 RATIO (10-20); Calcium,Total 8.9 mg/dL (8.5-10.1); Chloride 104 mmol/L (98-107); Cholesterol 145 mg/dL (200); Creatinine, Serum 0.88 mg/dL (0.70-1.30); EST Glomerular Filtration Rate 89 mL/min (>60); Est Glom Filt Rate - Afr Amer 108 mL/min (>60); Globulin 3.9 g/dL (2.2-4.2); Glucose 94 mg/dL (74-106); High Density Lipoprotein 45 mg/dL; PSA,Total- Diagnostic 3.43 ng/mL (0.0-4.0); Potassium 4.1 mmol/L (3.5-5.1); Protein, Total 7.6 g/dL (6.4-8.2); Sodium Level 138 mmol/L (136-145); Triglycerides 62 mg/dL; Very Low Density Lipoprotein 12 mg/dL (5-40)
== END | disposition home or self-care (01) ==
LOC: LAB 14:49
PROVIDERS: PCP Internal Medicine; Visit Provider Internal Medicine
DX: E55.9 Vitamin D deficiency, unspecified (principal); E11.9 Type 2 diabetes mellitus without complications; E03.9 Hypothyroidism, unspecified; E78.5 Hyperlipidemia, unspecified; R97.20 Elevated prostate specific antigen [PSA]
CPT/HCPCS: 36415; 80053; 80061; 81001; 82043; 82306; 82570; 82607; 84153; 84443; 85025

== ENCOUNTER 2022-11-27 15:31 | Emergency (ER) | payer MEDICARE, MEDICAID, SELFPAY ==
[2022-11-27 15:33] VITALS: BP 131/63; PULSE 78; RESP 16; TEMP 35.9; O2SAT 98; BMI 24.0
--- NOTE | 2022-11-27 15:55 | EDS_ITS ---
HPI HPI - GI History of Present Illness Chief Complaint: Abd Pain Narrative Narrative: 77-year-old with past medical history of BPH, being treated for UTI presents from Dr. Robledo's office with a right inguinal hernia and pain. He states that during his urinary tract infection, one of his symptoms was coughing. He must of coughed hard and developed tenderness in the right lower quadrant of the abdomen/in his groin. He noticed that today the area was getting larger and more tender. He denies any fevers or chills. No nausea or vomiting. He had a normal bowel movement this morning. He states that as he was at the urologist office, he was told to come to the emergency department because his condition was life-threatening. He denies any exacerbating or alleviating factors. No problems with urination. 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, bilateral Pneumonia Polyneuropathy Prostatocystitis Pulmonary hypertension Scoliosis Sinusitis Tinnitus of left ear Vitamin B12 deficiency Home Medications Doxazosin Mesylate 1 tab PO DAILY 05/13/14 [History Last Taken Unknown] finasteride 5 mg tablet 1 tab PO DAILY 05/13/14 [History Last Taken Unknown] tadalafil 5 mg tablet 5 mg PO DAILY 06/08/19 [History Last Taken Unknown] doxycycline hyclate 100 mg tablet 100 mg PO BID #20 tabs 03/17/22 [Rx Last Taken Unknown] prednisone 20 mg tablet 60 mg PO DAILY #12 tabs 03/17/22 [Rx Last Taken Unknown] Allergy/AdvReac Type Severity Reaction Status Date / Time No Known Allergies Allergy Verified 11/27/22 15:32 Family History Other Diabetes Social History Smoking Status: Current every day smoker tobacco type: cigarettes ROS ROS ED ROS Narrative Constitutional: No fever, no chills. HEENT: No sore throat. No neck pain. No loss of vision. No rhinorrhea. Cardiovascular: No chest pain. No palpitations. No pedal edema. Respiratory: No cough, no shortness of breath. Abdominal: No abdominal pain. Positive right inguinal pain and swelling. No nausea. No vomiting. No diarrhea, no constipation. Genitourinary: No dysuria. No hematuria. Musculoskeletal: No myalgias. No arthralgias. Neurologic: No headaches. No dizziness. No lightheadedness. Skin: No rash. No change in color. Psychiatric: No depression. No anxiety. EXAM Physical Exam Narrative Exam Narrative: Afebrile. Vital signs noted. HEENT: Normocephalic. Atraumatic. PERRL, EOMI. Neck soft and supple. No point tenderness or step off. Cardiovascular: Regular rate and rhythm. No murmurs, rubs, or gallops appreciated. Respiratory: No tachypnea. Lungs clear to auscultation bilaterally. Gastrointestinal: Abdomen soft, nontender, with normoactive bowel sounds. No rebound or guarding. Right inguinal area shows positive indurated, incarcerated hernia. No erythema or dusky color to the skin. Mild tenderness partially into the scrotal area. Neurological: Awake. Alert. Nonfocal, nonlateralizing. Skin: No rash. Normal color. No pallor. Musculoskeletal: No pedal edema. Full range of motion extremities. Const Vital Signs: 11/27/22 15:33 Temperature 96.7 F L Temperature Source Temporal Pulse Rate 78 Respiratory Rate 16 Blood Pressure 131/63 H Blood Pressure Mean 85 Pulse Ox 98 Oxygen Delivery Method Room Air MDM MDM MDM Narrative Medical decision making narrative: I discussed the patient with the general surgeon, Dr. Swain at approximately 1600. [facility] and an ice pack on the right inguinal area. Laboratory work presurgical will be drawn, and he requested a CT of the abdomen and pelvis. Patient was given morphine for analgesia. I reviewed his laboratory work. His CBC shows normal white count of 6.9, hemoglobin 12.3, hematocrit 37.2 with platelet count normal at 189. Coagulation studies are negative with an INR of 1.0 and PT of 13.3, PTT 30.8. CMP is grossly unremarkable with a normal potassium of 4.2, normal BUN of 13, normal creatinine 0.83. CT results are still pending. However, Dr. Swain had seen the patient in the emergency department and was awaiting the CT to be performed as he was unable to reduce the hernia at first. However, he was able to review the films and stated that there was not a large amount of bowel in the hernia. He reexamined the patient, and his hernia has lessened, and the patient feels improved. He then reduce the hernia, gave his contact information, and said that it could be repaired as an outpatient. The patient told the RN that he had to leave because he had somewhere to be and did not want to wait for his official CT results by radiology read, and left the emergency department. I reviewed and interpreted his CT, and there is no bowel containing hernia. He does have an enlarged prostate. I agree with the formal radiology review/report he was in improved and stable condition. Lab Data Attestation: I reviewed the patient's lab results. Labs: Laboratory Results - last 24 hr 11/27/22 11/27/22 11/27/22 16:05 16:05 16:05 WBC 6.9 RBC 3.95 L Hgb 12.3 L Hct 37.2 L MCV 94.2 H MCH 31.1 MCHC 33.1 RDW Std Deviation 47.8 H RDW Coeff of Eliseo 13.6 Plt Count 189 MPV 10.3 Immature Gran % (Auto) 0.600 Neut % (Auto) 67.1 Lymph % (Auto) 22.2 [place] % (Auto) 9.7 Eos % (Auto) 0.3 Baso % (Auto) 0.1 Absolute Neuts (auto) 4.7 Absolute Lymphs (auto) 1.54 Nucleated RBC % 0 PT 13.3 INR 1.0 APTT 30.8 Sodium 136 Potassium 4.2 Chloride 102 Carbon Dioxide 27.0 Anion Gap 7 BUN 13 Creatinine 0.83 Estim Creat Clear Calc 83.91 Est GFR (MDRD) Af Amer 115 Est GFR (MDRD) Non-Af 95 BUN/Creatinine Ratio 15.7 Glucose 102 Calcium 8.9 Total Bilirubin 0.50 AST 19 ALT 24 Alkaline Phosphatase 69 Total Protein 7.3 Albumin 2.9 L Globulin 4.4 H Albumin/Globulin Ratio 0.7 L Blood Type Antibody Screen 11/27/22 16:05 WBC RBC Hgb Hct MCV MCH MCHC RDW Std Deviation RDW Coeff of Eliseo Plt Count MPV Immature Gran % (Auto) Neut % (Auto) Lymph % (Auto) [place] % (Auto) Eos % (Auto) Baso % (Auto) Absolute Neuts (auto) Absolute Lymphs (auto) Nucleated RBC % PT INR APTT Sodium Potassium Chloride Carbon Dioxide Anion Gap BUN Creatinine Estim Creat Clear Calc Est GFR (MDRD) Af Amer Est GFR (MDRD) Non-Af BUN/Creatinine Ratio Glucose Calcium Total Bilirubin AST ALT Alkaline Phosphatase Total Protein Albumin Globulin Albumin/Globulin Ratio Blood Type A NEGATIVE Antibody Screen NEGATIVE Radiography Diagnostic Testing: Clinical Impression(s) from Imaging Studies Abdomen/Pelvis CT 11/27/22 15:57 IMPRESSION: 1. Small fat-containing right inguinal hernia. No bowel loops are present. 2. Cholelithiasis with no evidence of cholecystitis. 3. Enlargement prostate gland which may be due to hypertrophy. No obvious mass is identified. Electronically Signed: Jose F Yo MD at 19:03 EST , Discharge Plan Triage Chief Complaint: Abd Pain ED Provider: Maurisio Zarate Dx/Rx/DC Orders Clinical Impression: Inguinal hernia, right, Left against medical advice Prescriptions: No Action finasteride 5 MG tablet 1 tab PO DAILY Label Comments: Doxazosin Mesylate 4 MG 1 tab PO DAILY tadalafil 5 MG tablet 5 mg PO DAILY doxycycline hyclate 100 mg tablet 100 mg PO BID Qty: 20 0RF prednisone 20 mg tablet 60 mg PO DAILY Qty: 12 0RF Rx Instructions: start 03/18 Primary Care Provider: Halley Pickens Referrals: Halley Pickens DO [Primary Care Provider] - Disposition Disposition: Against Medical Advice Discharge Date/Time: 11/27/22 18:05
--- NOTE | 2022-11-27 15:57 | CT_ITS ---
EXAM: CT ABDOMEN AND PELVIS WITH INTRAVENOUS CONTRAST CLINICAL INDICATION: ingunal hernia TECHNIQUE: Helically acquired images were obtained of the abdomen and pelvis with intravenous contrast. This CT exam was performed using one or more of the following dose reduction techniques: automated exposure control, adjustment of the mA and/or kV according to patient size, and/or use of iterative reconstruction technique. This report was created using [employer] report generation technology. CONTRAST: IV 100mL [id number] COMPARISON: None. FINDINGS: LOWER THORAX: Unremarkable. Lung bases are clear. No cardiomegaly. No significant pericardial effusion. ABDOMEN: LIVER: Unremarkable. Homogeneous. No focal mass. GALLBLADDER AND BILE DUCTS: Multiple gallstones are present. There is no inflammation identified. No gallbladder distention or wall edema. No intra- or extrahepatic biliary ductal dilation. PANCREAS: Unremarkable. No focal cystic or solid mass. SPLEEN: Unremarkable. Normal size without focal cystic or solid mass. ADRENALS: Unremarkable. No nodules. KIDNEYS AND URETERS: Unremarkable. Normal renal size and position. No hydronephrosis. STOMACH AND BOWEL: Unremarkable. No stomach or bowel distention. No focal inflammatory change. PELVIS: APPENDIX: No evidence of acute appendicitis. BLADDER: Unremarkable. REPRODUCTIVE: The prostate gland is enlarged and measures 7.6 x 7.6 x 7.6 cm. ABDOMEN and PELVIS: INTRAPERITONEAL SPACE: Unremarkable. No ascites or other fluid collection. No free air. BONES/JOINTS: There are degenerative changes in lumbar spine with disc space narrowing. No suspicious lytic or blastic abnormality. SOFT TISSUES: There is a small fat-containing right inguinal hernia. VASCULATURE: There is an infrarenal abdominal aortic aneurysm that measures 4.2 cm in AP diameter. There is no evidence of rupture or leakage. LYMPH NODES: Unremarkable. No enlarged lymph nodes. CT/Abdomen/Pelvis W IV Cont ONLY IMPRESSION: 1. Small fat-containing right inguinal hernia. No bowel loops are present. 2. Cholelithiasis with no evidence of cholecystitis. 3. Enlargement prostate gland which may be due to hypertrophy. No obvious mass is identified. Electronically Signed: Jose F Yo MD at 19:03 [facility] ,
[2022-11-27 16:18] LABS: Absolute Lymphocyte Count 1.54 X10^3/uL (0.83-4.51); Absolute Neutrophil Count 4.7 X10^3/uL (2.0-7.7); Basophil# 0.01 X10^3/uL; Basophil% 0.1 % (0-1); Eosinophil# 0.02 X10^3/uL; Eosinophils% 0.3 % (0-5); Hematocrit 37.2 % (40-54); Hemoglobin 12.3 g/dL (13.0-16.5); Lymphocyte # 1.54 X10^3/ul (0.83-4.51); Lymphocyte % 22.2 % (19-41); Mean Corp Hgb Conc 33.1 g/dL (32-36); Mean Corpuscular Hgb 31.1 pg (27.0-32.0); Mean Corpuscular Volume 94.2 fL (80-94); Mean Platelet Vol. 10.3 fl (6.2-12.0); Monocyte# 0.67 X10^3/uL; Monocyte% 9.7 % (0-10); NRBC Flagged by Analyzer 0 % (0-5); Neutrophil # 4.65 X10^3/uL (2.7-7.7); Neutrophil % 67.1 % (47-70); Platelet Count 189 K/mm3 (150-450); RBC Distribution Width CV 13.6 % (11.6-14.6); RBC Distribution Width SD 47.8 fl (35.1-43.9); Red Blood Count 3.95 M/mm3 (4.6-6.2); White Blood Count 6.9 K/mm3 (4.4-11.0)
[2022-11-27 16:25] LABS: Prothrombin Time (Protime)PT. 13.3 SECONDS (11.7-14.9)
[2022-11-27 16:26] LABS: Partial Thromboplast Time 30.8 Seconds (24.1-36.2)
[2022-11-27] MEDS: Morphine 4 MG/ML Syringe IV (16:44)
[2022-11-27 16:51] LABS: ALB/GLOB Ratio 0.7 RATIO (0.9-2.4); AST(SGOT) 19 U/L (15-37); Alanine Aminotransfer ALT/SGPT 24 U/L (16-61); Albumin, Serum 2.9 g/dL (3.2-5.0); Alkaline Phosphatase 69 U/L (45-117); Anion Gap 7 (5-15); BUN 13 mg/dL (7-18); BUN/Creat Ratio 15.7 RATIO (10-20); Calcium,Total 8.9 mg/dL (8.5-10.1); Chloride 102 mmol/L (98-107); Creatinine, Serum 0.83 mg/dL (0.70-1.30); EST Glomerular Filtration Rate 95 mL/min (>60); Est Glom Filt Rate - Afr Amer 115 mL/min (>60); Estimated Creatinine Clearance 83.91 ml/min; Globulin 4.4 g/dL (2.2-4.2); Glucose 102 mg/dL (74-106); Potassium 4.2 mmol/L (3.5-5.1); Protein, Total 7.3 g/dL (6.4-8.2); Sodium Level 136 mmol/L (136-145)
--- NOTE | 2022-11-27 18:00 | ED.RN ---
Pt. walked out of room states I need to go. Pt. told that he was not discharged yet and the results of his CT were not back yet. IV removed. Dr. Zarate notified. Pt. did not want to wait around to speak with and did not want to sign AMA paperwork.
== END 2022-11-27 18:05 | disposition left against medical advice (07) ==
PROVIDERS: Emergency Provider Emergency Medicine; PCP Internal Medicine; Visit Provider Emergency Medicine
DX: K40.90 Unilateral inguinal hernia, without obstruction or gangrene, not specified as recurrent (principal); F17.210 Nicotine dependence, cigarettes, uncomplicated; Z53.21 Procedure and treatment not carried out due to patient leaving prior to being seen by health care provider
CPT/HCPCS: 74177; 80053; 85025; 85610; 85730; 86850; 86900; 86901; 96374; 99283; Q9967; A4216

== ENCOUNTER → 2022-12-25 | Outpatient (CLI) | payer MEDICARE, MEDICAID, SELFPAY ==
--- NOTE | 2022-12-25 13:12 | ECHOD_ITS ---
Reason For Study: PHTN Procedure This was a 2D Doppler, Color Flow transthoracic echocardiogram. The study was technically difficult. Exam performed in department. Left Ventricle Normal size and thickness. The left ventricular ejection fraction is 65 %. Right Ventricle Normal right ventricle. Atria The left and right atria are normal. Mitral Valve Mild diffuse mitral valve thickening. Tricuspid Valve Normal tricuspid valve. Aortic Valve Normal aortic valve. Pulmonic Valve The pulmonic valve is not well visualized. Great Vessels Normal sized aortic root. MMode/2D Measurements & Calculations LVIDd: 5.3 cm IVSd: 1.0 cm Ao root diam: 3.5 cm LVIDs: 3.0 cm LVPWd: 1.0 cm RVDd: 3.7 cm FS: 43.1 % LAV(MOD-bp): 27.0 ml LVAd ap4: 26.7 cm2 SV(MOD-sp4): 45.6 ml LAV(MOD-bp) Indexed: 12.6 ml/m2 LVLd ap4: 7.7 cm LAV(MOD-sp2): 21.7 ml EDV(MOD-sp4): 77.1 ml LAV(MOD-sp4): 23.1 ml EDV(sp4-el): 78.8 ml LVAs ap4: 15.7 cm2 LVLs ap4: 6.6 cm ESV(MOD-sp4): 31.5 ml ESV(sp4-el): 31.5 ml EF(MOD-sp4): 59.1 % EF(sp4-el): 60.1 % SV(sp4-el): 47.4 ml LA dimension(2D): 3.5 cm LA A4 area: 12.8 cm2 RA A4 area: 10.2 cm2 Time Measurements MV dec time: 0.21 sec Doppler Measurements & Calculations MV E max marcos: 74.5 cm/sec Lat Peak E' Marcos: 6.4 cm/sec Med Peak E' Marcos: 8.4 cm/sec MV A max marcos: 95.1 cm/sec E/E' lat: 11.7 E/E' med: 8.9 MV E/A: 0.78 Ao V2 max: 133.0 cm/sec LV V1 max: 109.4 cm/sec MV dec slope: 363.4 cm/sec2 Ao max P.1 mmHg LV V1 max P.8 mmHg Ao V2 mean: 91.3 cm/sec LV V1 mean P.6 mmHg Ao mean P.8 mmHg LV V1 mean: 76.3 cm/sec Ao V2 VTI: 29.3 cm LV V1 VTI: 25.4 cm AV (velocity ratio): 0.87 PA V2 max: 75.8 cm/sec ECHO/Echo Complete Interpretation Summary The study was technically difficult. The left ventricular ejection fraction is 65 %. Mild diffuse mitral valve thickening. Ordering Physician: Halley Pickens Referring Physician: Halley Pickens Performed By: Lyndsay Schofield, RDKEIKO, RVT
== END | disposition home or self-care (01) ==
LOC: CVS 13:07
PROVIDERS: PCP Internal Medicine; Referring Provider Internal Medicine; Visit Provider Internal Medicine
DX: I27.20 Pulmonary hypertension, unspecified (principal)
CPT/HCPCS: 93306

== ENCOUNTER 2022-12-31 07:33 | Inpatient (IN) | payer MEDICARE, MEDICAID, SELFPAY ==
[2022-12-31] VITALS (23 sets, daily range): BP systolic 104–168; BP diastolic 53–82; PULSE 82–96; RESP 16–20; TEMP 36.7–37.3; O2SAT 85–98; BMI 23.9
--- NOTE | 2022-12-31 | PROST_PTH ---
PATIENT: PHI PATEL LOC: MS3 U#:[id number] AGE/SX: 77/M ROOM: IN312 RE12/31/[address]: Dr. Marquis Robledo MD : 1945 BED: 1 DIS: 01/02/2023 SPEC #: [id number] RECD: 12/31/22 16:51 STATUS: JOHN REMonae #: [id number] SIRIA: 12/31/22 00:[address]: Marquis Robledo DEPT: SURGICAL PATHOLOGY RECD BY: Ivan Kent ENTERED: 01/01/23 09:19 SP TYPE: PROSTATE OTHR DR: MD Dr. Halley Alvarez, DO Tissues: B - Prostate, NOS A - Soft tissues, NOS Procedures: Surgery Specimen Level III Surgery Specimen Level HEADER OPERATION: Robotic inguinal hernia repair with mesh PRE-OP DIAGNOSIS: Right inguinal hernia TISSUE SUBMITTED: A ? Right inguinal lipoma, B - Prostate MICROSCOPIC DIAGNOSIS A. Right inguinal lipoma, excision: Mature adipose tissue, consistent with lipoma. A benign lymph node with reactive changes. B. Prostate, simple prostatectomy: Benign prostatic hyperplasia, glandular and stromal type. Chronic inflammation and basal cell hyperplasia. A piece of bladder wall with mild chronic inflammation. See comment. SJ:darcy 01/02/2023 COMMENT B. Portion of bladder wall also shows underlying detrusor muscle. MICROSCOPIC DESCRIPTION Slides are reviewed. GROSS DESCRIPTION A - Received in fixative is one container labeled with the patient's name and designated right inguinal lipoma. The specimen consists of three variable sized pieces of yellow adipose tissue measuring in aggregate 10.0 x 4.0 x 1.0 cm. Sections reveal yellow adipose cut surfaces without area of hemorrhage, necrosis or cystic degeneration. Tomato Grader sections are submitted in two cassettes. B - Received in fixative is one container labeled with the patient's name and designated prostate. The specimen consists of a simple prostatectomy specimen in four pieces weighing in aggregate 129 gm. The two larger pieces measure 8.0 x 5.0 x 4.0 cm and 8.0 x 4.0 x 3.5 cm. The two smaller pieces measure in aggregate 2.5 x 2.5 x 1.0 cm. One piece also shows an attached piece of soft tissue at one end which measures 3.5 x 2.0 x 1.5 cm. Sections do not reveal any well-defined mass lesion. Tomato Grader sections are submitted in ten cassettes. Cassettes 1 & 2 contain the adherent piece of soft tissue and 3 contains the smaller pieces. / KULDEEP:darcy 01/01/2023 TC:5 CPT: 07622, 65002
[2022-12-31] MEDS: Lactated Ringers 1,000 ML 15 ML IV ×2 (06:29→12:26)
--- NOTE | 2022-12-31 07:00 | PCM.HP.BLA ---
History and Physical Date of Admission: 12/31/22 Intake Vital Signs ? 11/27/2314:33 12/05/2312:58 Height 6 ft 2 in 6 ft 2 in Weight: 187 lb 184 lb BMI 24.0 23.6 BP 131/63 H 104/66 Blood Pressure Location ? Rt brachial Position ? Sitting Respiration 16 18 Pulse 78 ? Temp 96.7 F L ? Temp Source Temporal ? Pulse Oximetry (%) 98 ? 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 Current every day smoker tobacco type: cigarettes alcohol intake:? current alcohol intake frequency: 0-2 drinks per day HPI HPI HPI: Patient is here for follow-up for right inguinal hernia.? Patient was in a lot of pain in his right groin and went to his urologist office who sent him to the emergency room.? I saw him in the emergency room and I was able to reduce his hernia and he had a CT scan showed no bowel involved.? At that time I had him follow-up with me.? He currently says there is some bulging and pain but not like today went to the emergency room.? He is mostly concerned with his urination and says he is having a very difficult time urinating especially at night. ROS General General: Yes weight change and fatigue; No appetite, colon cancer, breast cancer or weakness HEENT HEENT: No difficulty swallowing, eye injury, eye surgery, swollen glands or hoarseness Endo Endocrine: No thyroid disease, diabetes mellitus, thyroid cancer, Hair loss, heat intolerance or cold intolerance Skin Skin: No rash or changing moles Breast Breast: No left breast lump, right breast lump, nipple discharge, breast pain, abnormal mammogram, abnormal US or breast enlargement Musc Musculoskeletal: Yes arthritis and rheumatoid arthritis; No back problems, gout or joint pain Cardio Cardiovascular: No murmur, pacemaker, heart disease, atrial fibrillation, high blood pressure, heart attack, heart stent, palpitations, shortness of breat with exertion or chest pain Psych Psychiatric: No depression, anxiety or hearing voices Resp Respiratory: No shortness of breath, No sleep apnea, No cough, No COPD, No asthma, No emphysema and No wheezing Gastro Gastrointestinal: No abdominal pain, No nausea or vomiting, No diarrhea, No constipation, No blood in stool, No acid reflux, No hemorrhoids, No ulcers, Yes gallbladder problem and No black,tarry stools Jesus Hematologic: No blood thinners, No blood disorders, No bleeding, No anemia and No blood clots Neuro Neurologic: No system reviewed and no additional complaints, except as documented, No as per HPI, No abnormal gait, No abnormal hearing, No abnormal movements, No abnormal speech, No behavioral changes, No burning sensations, No confusion, No convulsions, No disequilibrium, No dizziness, No localized weakness, No frequent falls, No headache(s), No lack of coordination, No loss of vision, No memory loss, Yes numbness, No other visual disturbances, No radicular pain, No restless legs, No sensory deficit, No syncope, Yes tingling, No tremor(s), No weakness and No other Exam Const General: cooperative Orientation: alert and oriented x3 HENMT Head: normal to inspection Neck Neck: normal visual inspection and full ROM Chest Chest palpation & inspection: normal inspection of the chest Resp Effort & Inspection: normal respiratory effort Auscultation: clear to auscultation bilaterally Cardio Rate: regular rate Rhythm: regular rhythm GI Inspection: non-distended Palpation: soft, hernia indirect inguinal on the right and nontender Skin General: no rashes or lesions noted Neuro General: patient alert and patient oriented x3 Extrem General: full ROM Psych Appearance: grossly normal Mental Status: mental status grossly normal Assessment and Plan Assessment and Plan (1) Right inguinal hernia: ?Status:?Acute ?Plan: Patient is a right inguinal hernia.? I would like to repair this robotically.? Patient is seeing Dr. Robledo for his prostate issues.? If Dr. Robledo plans on performing a robotic prostatectomy I can repair the hernia at the same time.? If Dr. Robledo does not plan surgical resection I will just schedule him for robotic right inguinal hernia repair with mesh.? I discussed the procedure in great detail with the patient.? I discussed the risks including not limited to bleeding, infection, injury to underlying organs, recurrence of hernia.? Patient understands the risks and when to proceed.? I will wait until next Thursday after he has had a chance to see Dr Akbar and form a plan.? At that time I will call the patient and schedule him for surgery or I will confer with urology to schedule a combined robotic case. Pradip Swain MD Pager: [facility] [address] [place] [address], [address] [place] [phone] Office: I have examined the patient and the H&P has been reviewed. There are no clinical changes since date of exam.
[2022-12-31] MEDS: Cefazolin 2 GM in 0.9% Normal Saline 100 ML IV (07:26)
--- NOTE | 2022-12-31 07:34 | HP.PCM_ITS ---
HPI - General General Date of Admission: 12/31/22 HPI Narrative PHI PATEL, is a 77 M who presents for a simple prostatectomy for BPH with obstruction and also is going to have a hernia repair [facility] Medical History (Updated 12/18/22 @ 08:44 by Malini Lim) Alcohol use Anxiety Arthritis Back pain Benign paroxysmal positional vertigo Bladder disease Chronic pain of both knees Contact dermatitis COPD exacerbation Depressive disorder Difficulty chewing Eczema Erectile dysfunction Ganglion cyst Hemorrhoids History of echocardiogram History of pain when walking Hx of hypoglycemia Hyperlipidemia Hypothyroidism Knee osteoarthritis Loose, teeth Low iron 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, bilateral Polyneuropathy Prostatocystitis Pulmonary hypertension Restless legs Scoliosis Sinusitis Smoker Tinnitus of left ear Vitamin B12 deficiency Wears glasses Home Medications tramadol 50 mg tablet 50 mg PO PRN PRN Pain 12/05/22 [History Last Taken Unknown] ciprofloxacin HCl 500 mg tablet (Cipro) 500 mg PO BID #14 tabs 12/31/22 [Rx Last Taken Unknown] ibuprofen 800 mg tablet 800 mg PO Q6H PRN pain #20 tabs 12/31/22 [Rx Last Taken Unknown] meloxicam 15 mg tablet 15 mg PO DAILY 12/31/22 [History Last Taken Unknown] Allergy/AdvReac Type Severity Reaction Status Date / Time No Known Allergies Allergy Verified 12/31/22 06:19 Family History (Updated 12/05/22 @ 13:58 by Bianca Rodas) Mother CVA (cerebral vascular accident) Hypertension Arthritis Father Diabetes Hypertension Surgical History (Updated 12/18/22 @ 08:44 by Malini Lim) History of elbow surgery History of vasectomy History of wisdom tooth extraction S/P appendectomy S/P tonsillectomy Social History (Updated 12/05/22 @ 13:58 by Bianca Rodas) Smoking Status: Current every day smoker tobacco type: cigarettes alcohol intake: current alcohol intake frequency: 0-2 drinks per day Vital Signs Vital Signs Vital Signs: 12/31/22 06:10 12/31/22 06:10 Temperature 98.0 F Temperature Source Temporal Pulse Rate 85 Respiratory Rate 16 Respiratory Pattern Normal Blood Pressure 155/69 H Blood Pressure Mean 97 Blood Pressure Source Monitor Blood Pressure Position Semi-Fowlers Blood Pressure Location Right Arm Pulse Ox 96 Oxygen Delivery Method Room Air Weight Weight: 84.6 kg Body Mass Index (BMI) 23.9
--- NOTE | 2022-12-31 08:48 | PCM.OPRPT ---
Report of Operation Date of Procedure: 12/31/22 Pre-Operative Diagnosis: Right inguinal hernia Post-Operative Diagnosis: Right inguinal hernia Surgery/Procedure Performed:: Robotic assisted laparoscopic right inguinal hernia repair with mesh Description of Surgical Findings:: Combination case with Dr. Robledo Specimen's removed: Right inguinal cord lipoma Description of Procedure: Patient was brought back to the operating room and general anesthesia was induced. Patient was placed in the lithotomy position for the prostatectomy. The abdomen was prepped and draped in usual sterile fashion. Dr. Robledo entered the abdomen using Veress technique and placed 3 robotic ports. The robot was docked after placing was placed in Trendelenburg position. Patient had a very small hernia sac in the right inguinal canal. An incision was made in the peritoneum superior to this and electrocautery dissection was used to carry the dissection down to the hernia sac. The hernia sac was reduced. There is a large cord lipoma which was also dissected free and removed. Next a piece of ProGrip mesh was unfolded over the hernia defect completely covering the hernia defect. The peritoneum was reapproximated using a running 3 OV lock suture completely covering the mesh. After my portion of the procedure was complete Dr. Robledo took over to perform the prostatectomy. Please see his operative note for his portion of the procedure. Grafts/Implants Used: ProGrip mesh Admit VTE Documentation VTE Mechan Device Prophylaxis: SCD's
[2022-12-31] MEDS: Bupivacaine 0.5% PF 10 ML VIAL (10:08)
--- NOTE | 2022-12-31 10:09 | OP.PCM_ITS ---
Report of Operation Date of Procedure: 12/31/22 Pre-Operative Diagnosis: bph w obstruction Post-Operative Diagnosis: same Surgery/Procedure Performed:: Laparoscopic robotic assisted simple prostatectomy Description of Surgical Findings:: Patient was taken back to the operating room after smooth induction of general anesthesia he was placed supine on the table. We made a small incision above the umbilicus advanced a Veress needle into the peritoneal cavity filled the peritoneal cavity CO2 gas then placed my camera trocar right arm trocar left arm trocar and an 8 mm air seal port. At this point the case was turned over to Dr. Mak and he proceeded with a hernia repair on the right side please see his operative note for this is as a separate procedure. Once he was done then the case was turned over back to me we filled the bladder up with 400 cc of normal saline I made an incision in the midline of the bladder to clamshell open the bladder. I then used a Mark needle coming from both sides to hold open the wings of the bladder. Then we got inside the bladder and had a very large prostate proceeded with the enucleation of the prostatectomy simple approach and scored and incised the mucosa circumferentially around the prostate edges I then dissected down until I got to the pseudocapsule between the adenoma and the edge of the prostate I then worked anteriorly all the way back deep until I got to the deep end of the capsule and then came down around that until I encountered the catheter and then I went laterally on both sides of the pseudocapsule between the adenoma and the prostate to shell out the prostate lobes on the left and the right side then we elevated up to came across the urethral plate this was then transected catheter was in place and then we elevated the simple adenomas both sides from the prostate completely intact. Then after this was removed then the adenoma was then split in half and one half was put into 1 bag and the other half was put in the second second bag I then went to the prostate and then we inspected the prostate fossa cauterized all the bleeders and then we placed a 22 Kinyarwanda three-way catheter into the bladder and then closed the bladder in the midline with running 0 Vicryl starting from the top and the bottom meeting in the midline to close the we then did continuous bladder irrigation there was no leakage from the closure of the bladder the irrigation was like an light mohan color we then undocked the robot we removed the prostate adenomas from the umbilical port we closed the umbilical plical port with 2-0 Vicryl [id number] stitches and then closed the incisions patient's anesthetic is currently being reversed we have the bladder and continuous irrigation and the urine is like a light mohan color. Minimal blood loss during the case and successful removal of a very large prostate adenomas and wide open channel now. Complete a laproscopic robotic assited simple prostatectomy Surgeon: Marquis Robledo Type of Anesthesia: General Estimated Blood Loss (mL): 100cc Admit VTE Documentation VTE Present on Admission: No VTE Mechan Device Prophylaxis: SCD's VTE Pharm Prophylaxis ordered?: No
--- NOTE | 2022-12-31 10:15 | DCINST_ITS ---
Discharge Instructions Diet Discharge Diet: No restrictions, Light diet - advance as tolerated and Soft diet Activity Discharge Activity: May Not Drive Lifting Restrictions: no lifting Additional Activity Instructions:: home with castro to gravity for 2 weeks Dressing / Incision Catheter: Castro to leg bag and Castro to large bag Drain: [place] Follow Up Care Please Follow Up With: Marquis Robledo MD When: 2 weeks for follow up. Test Results: Test results from this visit will be discussed in further detail at your follow- up appointment, if applicable. Discharge Plan Admission Primary Reason for Your Visit: HERNIA REPAIR AND PROSTATE SURGERY Attending Provider: Marquis Robledo Primary Care Provider: Halley Pickens Consulting Providers: Pradip Swain Discharge Orders/Prescriptions Prescriptions: New ciprofloxacin HCl [Cipro] 500 mg tablet 500 mg PO BID Qty: 14 0RF ibuprofen 800 mg tablet 800 mg PO Q6H PRN (Reason: pain) Qty: 20 0RF Continued tramadol 50 mg tablet 50 mg PO PRN PRN (Reason: Pain) Label Comments: TAKE 1 TABLET BY MOUTH once to twice a day as needed Rx Instructions: X1 IN AM AND MAY TAKE IN PM IF NEEDED meloxicam 15 mg tablet 15 mg PO DAILY Discontinued finasteride 5 MG tablet 1 tab PO DINNER Label Comments: Doxazosin Mesylate 4 MG 1 tab PO DINNER tadalafil 5 MG tablet 5 mg PO DINNER Referrals / Follow Up: Marquis Robledo MD [Med Staff - Active Staff] - Halley Pickens DO [Primary Care Provider] - Disposition Disposition (needs filled in before D/C Order can be placed): Home, Self Care
--- NOTE | 2022-12-31 11:47 | SUR.PHASEI ---
AT 1035, PATIENT ARRIVE TO PACU RESTLESS AND COMBATIVE SAYING HE NEEDED TO GET OUT OF BED TO URINATE. UNABLE TO REORIENT PATIENT. HAVING TO PHYSICALLY RESTRAINT THE PATIENT WITH 2 NURSES. ALL FOUR SIDE RAILS UP. 3 WAY MAHAN CATHETER DOES NOT APPEAR TO BE DRAINING FREELY. 3-WAY MAHAN CATHETER MANUALLY IRRIGATELY 3 TIMES WITH 50 CC STERILE NS AND RETURNED BRIGHT RED LIQUID WITH CLOTS. AFTER MANUAL IRRIGATION, 3-WAY MAHAN APPEARS TO BE DRAINING WITHOUT DIFFICULTY.
--- NOTE | 2022-12-31 15:11 | SUR.PHASEI ---
KESHAV Egan came to see pt to assess right groin bulge. she notes that pt is hard to assess while he is laying in bed. pt okay to go to the floor.
--- NOTE | 2022-12-31 15:25 | SUR.PHASEI ---
Pt was delayed going to the floor due to transport could not come right away.
--- NOTE | 2022-12-31 15:59 | SUR.PHASEI ---
Called pt's sister Wanda to let her know pt is in 312.
[2022-12-31] MEDS: 0.9% Normal Saline 1,000 ML 100 ML IV (19:40)
[2022-12-31] MEDS: Ciprofloxacin 500 MG Tablet PO (21:34)
[2022-12-31] MEDS: Docusate Sodium 100 MG Capsule 200 MG PO (21:34)
[2023-01-01 04:17] VITALS: BP 126/68; PULSE 83; RESP 16; TEMP 36.7; O2SAT 97
[2023-01-01] MEDS: 0.9% Normal Saline 1,000 ML 100 ML IV ×3 (04:22→23:15)
--- NOTE | 2023-01-01 07:30 | PCM.PN.GU ---
Subjective Subjective Status post hernia repair and simple robotic prostatectomy he did well overnight continuous irrigation was going. No serious blood clots. The urine is a light mohan color this morning but still slowly bleeding so organ to continue with irrigation I do not anticipate discharge today Objective Data Objective Data Vital Signs: Vital Signs Temp Pulse Resp BP Pulse Ox O2 Del Method O2 Flow Rate 98.0 F 83 16 126/68 H 97 Nasal Cannula 1.5 01/01/23 04:17 01/01/23 04:17 01/01/23 04:17 01/01/23 04:17 01/01/23 04:17 01/01/23 04:17 01/01/23 04:17 Oxygen Flow Rate (L/min) 1.5 Oxygen Delivery Method Nasal Cannula Weight: 84.6 kg Body Mass Index (BMI) 23.9 Intake & Output: Intake and Output for Last 24 Hours 12/30/22 12/31/22 01/01/23 23:59 23:59 23:59 Intake Total 2533 / 2533 878 / 878 Output Total 55419 / 65177 1450 / 1450 Balance -95685 / -29007 -572 / -572 Lab / Micro Data Attestation: I reviewed the patient's lab results. Physical Exam Const alert and oriented x3 General Appearance: cooperative HEENT normocephalic, head/scalp atraumatic, EAC's normal and TM's normal bilaterally Eyes PERRL and EOMs intact bilaterally Pupil: sluggish Neck no lymphadenopathy, supple and no JVD General: trachea midline Lymph Lymphatic: no lymphadenopathy noted, lymphedema and lymphadenopathy Resp normal respiratory effort, normal air movement and clear to auscultation bilaterally Cardio regular rate, regular rhythm and peripheral pulses 2+ throughout GI soft to palpation, non-tender and non-distended Extremity normal capillary refill and no clubbing, cyanosis or edema General Extremity: no tenderness to palpation of joints or extremities Skin no rashes or lesions noted General Skin Exam: turgor normal Lesions: no lesions Rashes: no rashes Neuro CN's II-XII intact bilaterally Speech: speech normal Motor Exam: strength 5/5 throughout; Negative for general weakness Psych thought process normal, cooperative and affect normal Appearance: appropriate Assessment & Plan Assessment/Plan (1) BPH with obstruction/lower urinary tract symptoms: PLAN: Status post simple prostatectomy patient is doing well catheter in place continue with irrigation still too bloody to stop may be tomorrow we can stop the irrigation. (2) Right inguinal hernia:
[2023-01-01] MEDS: HYDROcodone Bitartrate/Apap 5/325 Tablet PO (07:36)
[2023-01-01 07:59] VITALS: BP 138/77; PULSE 81; RESP 16; TEMP 36.6; O2SAT 93
[2023-01-01] MEDS: Ciprofloxacin 500 MG Tablet PO ×2 (08:56→20:38)
[2023-01-01] MEDS: Docusate Sodium 100 MG Capsule 200 MG PO ×2 (08:56→20:35)
[2023-01-01 09:14] VITALS: O2SAT 88; O2SAT 94
[2023-01-01 11:06] VITALS: BP 133/66; PULSE 89; RESP 16; TEMP 37.3; O2SAT 94
--- NOTE | 2023-01-01 13:40 | CASEMGMT ---
JACIEL DUBOIS Assessment: Face to Face with pt for initial transition planning/care coordination assessment. JACIEL DUBOIS introduced self and role at [facility], pt voices understanding and consents to assessment. Pt is A/O x4 and answers all questions appropriately at this time. Pt lying in bed in no distress. Care providers, pharmacy, and demographics verified/updated. Admitting Dx: pre op PCP:Celio Specialists:Venkat, uro; Miedel, eyes Preferred Pharmacy: [facility], pt has already obtained rx Insurance: RUTH ANN JOYNER Prescription Benefit: yes LNOK: [place], sister; Valeria Collazo, ex Living Arrangements: Pt lives alone in a ground level apt with 1 step to enter. Pt lives in a community living. Pt has access to meals on wheels Mon-Fri but chooses not to. Pt does own cooking and is I in ADL's. Transportation: Pt drives self or family transports pt to medical appts. DME/HHC/SNF: Pt denies having any DME in the home, previous HHC or SNF stays. Pt states no concerns with going home at time of dc. Received notification from Helene at [facility] that pt was set up for SN through them post hospital stay. Pt states he is aware of this plan and is agreeable to it. Pt denies any AD. 6 Clicks=20. Updated Helene that plan is for pt to dc tomorrow. Pt states no further concerns/needs. CM to follow. Advised pt to ask CM if any further question/concerns/needs arise, voices understanding. Pt Goal: Home with C Plan: Home with [facility] SN- already set up prior to hospitalization.
[2023-01-01 14:29] VITALS: BP 144/80; PULSE 75; RESP 16; TEMP 36.6; O2SAT 94
--- NOTE | 2023-01-01 16:21 | CPS ---
could not wake patient
[2023-01-01 20:33] VITALS: BP 147/74; PULSE 73; RESP 18; TEMP 37; O2SAT 92
[2023-01-01] MEDS: 0.9% Saline Lock 10 ML Syringe IV (20:40)
[2023-01-02 03:49] VITALS: BP 148/77; PULSE 72; RESP 20; TEMP 36.9; O2SAT 94
[2023-01-02 09:45] VITALS: BP 152/80; PULSE 83; RESP 16; TEMP 36.8; O2SAT 94
[2023-01-02] MEDS: Ciprofloxacin 500 MG Tablet PO ×2 (09:51→20:30)
[2023-01-02] MEDS: 0.9% Normal Saline 1,000 ML 100 ML IV (09:51)
[2023-01-02 15:00] VITALS: BP 152/100; PULSE 82; RESP 18; TEMP 36.9; O2SAT 94
--- NOTE | 2023-01-02 15:48 | NURSING ---
Paged Dr. Robledo x2 patient wants to be discharged.
--- NOTE | 2023-01-02 16:01 | CASEMGMT ---
Addendum entered by Erika Brambila 01/02/23 16:04: Updated received from nurse that pt will not dc today. Updated [facility]. Original Note: Updated Helene at [facility] that nurse is working on reaching for dc.
--- NOTE | 2023-01-02 16:34 | NURSING ---
Patient upset he is spending another night said Dr. Robledo said he was supposed to stay 1 night and now its turned into 3 nights.
--- NOTE | 2023-01-02 19:59 | PCM.DC.SUM ---
Providers Date of Admission: 12/31/22 Primary Care Physician: Dr. Halley Pickens DO Reason For Visit: PRE-OP Diagnosis Discharge Diagnosis (1) BPH with obstruction/lower urinary tract symptoms: Status: Acute Code(s): N40.1 - Benign prostatic hyperplasia with lower urinary tract symptoms; N13.8 - Other obstructive and reflux uropathy Plan: Status post simple prostatectomy patient is doing well catheter in place continue with irrigation still too bloody to stop may be tomorrow we can stop the irrigation. (2) Right inguinal hernia: Status: Acute Code(s): K40.90 - Unilateral inguinal hernia, without obstruction or gangrene, not specified as recurrent Medications at Discharge Home Medications tramadol 50 mg tablet 50 mg PO PRN PRN Pain 12/05/22 ciprofloxacin HCl 500 mg tablet (Cipro) 500 mg PO BID #14 tabs 12/31/22 ibuprofen 800 mg tablet 800 mg PO Q6H PRN pain #20 tabs 12/31/22 meloxicam 15 mg tablet 15 mg PO DAILY 12/31/22 Hospital Course Summary of Care Provided Hospital Course: s/p repair of hernia and simple robotic prostatectomy home wiht leg bag. Weight / BMI Weight Weight: 84.6 kg Body Mass Index (BMI) 23.9 D/C Instructions Discharge Diet: No restrictions, Light diet - advance as tolerated and Soft diet Additional Activity Instructions: home with castro to gravity for 2 weeks Catheter: Castro to leg bag and Castro to large bag Drain: [place] Please Follow Up With: Marquis Robledo MD When: 2 weeks for follow up. Meaningful Use Info Meaningful Use Diagnoses (Choose all that apply): None applicable Discharge Plan Admission Admit Date/Time: 12/31/22 07:33 Primary Reason for Your Visit: HERNIA REPAIR AND PROSTATE SURGERY Attending Provider: Marquis Robledo Primary Care Provider: Halley Pickens Consulting Providers: Pradip Sawin Discharge Orders/Prescriptions Prescriptions: New ciprofloxacin HCl [Cipro] 500 mg tablet 500 mg PO BID Qty: 14 0RF ibuprofen 800 mg tablet 800 mg PO Q6H PRN (Reason: pain) Qty: 20 0RF Continued tramadol 50 mg tablet 50 mg PO PRN PRN (Reason: Pain) Label Comments: TAKE 1 TABLET BY MOUTH once to twice a day as needed Rx Instructions: X1 IN AM AND MAY TAKE IN PM IF NEEDED meloxicam 15 mg tablet 15 mg PO DAILY Discontinued finasteride 5 MG tablet 1 tab PO DINNER Label Comments: Doxazosin Mesylate 4 MG 1 tab PO DINNER tadalafil 5 MG tablet 5 mg PO DINNER Referrals / Follow Up: Marquis Robledo MD [Med Staff - Active Staff] - Halley Pickens DO [Primary Care Provider] - Disposition Disposition (needs filled in before D/C Order can be placed): Home Health Service
[2023-01-02 20:19] VITALS: BP 160/81; PULSE 76; RESP 20; TEMP 37; O2SAT 94
[2023-01-02] MEDS: Docusate Sodium 100 MG Capsule 200 MG PO (20:30)
[2023-01-02] MEDS: HYDROcodone Bitartrate/Apap 5/325 Tablet PO (20:33)
== END 2023-01-02 21:15 | disposition home health service (06) | DRG 707 ==
LOC: SDC 11:13 → MS3 11:13
PROVIDERS: Surgery; Admitting Provider Urology; PCP Internal Medicine; Referring Provider Urology; Visit Provider Urology
PROC: 0YU54JZ Supplement Right Inguinal Region with Synthetic Substitute, Percutaneous Endoscopic Approach (ICD-10-PCS; principal; 2022-12-31 07:10)
PROC: 0VT04ZZ Resection of Prostate, Percutaneous Endoscopic Approach (ICD-10-PCS; CPT 55867; 2022-12-31 07:10)
DX: N40.1 Benign prostatic hyperplasia with lower urinary tract symptoms (principal); N13.8 Other obstructive and reflux uropathy; K40.90 Unilateral inguinal hernia, without obstruction or gangrene, not specified as recurrent; E78.5 Hyperlipidemia, unspecified; F17.210 Nicotine dependence, cigarettes, uncomplicated; R35.1 Nocturia; R33.8 Other retention of urine; D17.6 Benign lipomatous neoplasm of spermatic cord; Z90.49 Acquired absence of other specified parts of digestive tract; Z79.899 Other long term (current) drug therapy
CPT/HCPCS: 88304; 88309; 93005; 94668; J7030; J7120; A4216; J0330; J2405

== ENCOUNTER → 2023-06-08 | Outpatient (CLI) | payer MEDICARE, MEDICAID, SELFPAY ==
[2023-06-08 14:10] LABS: PSA,Total - Annual Screen 2.22 ng/mL (0.00-4.00)
== END | disposition home or self-care (01) ==
LOC: LAB 12:39
PROVIDERS: PCP Internal Medicine; Referring Provider Urology; Visit Provider Urology
DX: Z12.5 Encounter for screening for malignant neoplasm of prostate (principal)
CPT/HCPCS: 36415; 84153; G0103

== ENCOUNTER 2024-01-12 00:28 | Emergency (ER) | payer MEDICARE, MEDICAID, SELFPAY ==
[2024-01-12 00:30] VITALS: BP 133/81; PULSE 79; RESP 13; TEMP 36.5; O2SAT 94; BMI 23.1
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
--- NOTE | 2024-01-12 01:47 | CT_ITS ---
EXAM: CT HEAD WITHOUT INTRAVENOUS CONTRAST CLINICAL INDICATION: Injury/Pain TECHNIQUE: Multiple axial images were obtained of the head without intravenous contrast. This CT exam was performed using one or more of the following dose reduction techniques: automated exposure control, adjustment of the mA and/or kV according to patient size, and/or use of iterative reconstruction technique. RADIATION DOSE: CTDIvol = 44.99 mGy, DLP = 846.73 mGy-cm COMPARISON: Noncontrast head CT and CTA head 08/15/2019 FINDINGS: BRAIN AND EXTRA-AXIAL SPACES: Diffuse cerebral volume loss. Periventricular small vessel ischemic changes. No intra- or extra-axial hemorrhage. No intracranial mass or mass effect. Posterior fossa structures are unremarkable. No hydrocephalus. Basal cisterns are patent. BONES/JOINTS: Unremarkable. No discrete lytic or blastic abnormalities. VASCULATURE: Vascular calcifications. SINUSES: Unremarkable as visualized. Clear. MASTOID AIR CELLS: Unremarkable. Clear. ORBITS: Visualized globes, extraocular muscles, optic nerves and retrobulbar fat appear unremarkable. CT/Brain/Head without Contrast IMPRESSION: 1. No acute intracranial abnormalities. 2. Age-related changes. Electronically Signed: Keenan Bah MD at 2:26 EST ,
[2024-01-12] MEDS: Ziprasidone IM 20 MG/ML VIAL IM (01:50)
[2024-01-12 01:58] LABS: Absolute Lymphocyte Count 1.87 X10^3/uL (0.83-4.51); Absolute Neutrophil Count 3.5 X10^3/uL (2.0-7.7); Basophil# 0.01 X10^3/uL; Basophil% 0.2 % (0-1); Hemoglobin 14.1 g/dL (13.0-16.5); Lymphocyte # 1.87 X10^3/ul (0.83-4.51); Mean Corp Hgb Conc 32.8 g/dL (32-36); Mean Corpuscular Volume 94.5 fL (80-94); Mean Platelet Vol. 9.5 fl (6.2-12.0); Monocyte# 0.28 X10^3/uL; Monocyte% 4.9 % (0-10); NRBC Flagged by Analyzer 0 % (0-5); Neutrophil # 3.49 X10^3/uL (2.7-7.7); Neutrophil % 61.5 % (47-70); Platelet Count 176 K/mm3 (150-450); RBC Distribution Width CV 13.9 % (11.6-14.6); RBC Distribution Width SD 48.5 fl (35.1-43.9); Red Blood Count 4.55 M/mm3 (4.6-6.2); White Blood Count 5.7 K/mm3 (4.4-11.0)
[2024-01-12 02:13] LABS: Anion Gap 5 (5-15); BUN 18 mg/dL (7-18); BUN/Creat Ratio 19.8 RATIO (10-20); Calcium,Total 9.3 mg/dL (8.5-10.1); Chloride 102 mmol/L (98-107); Creatinine, Serum 0.91 mg/dL (0.70-1.30); EST Glomerular Filtration Rate 85 mL/min (>60); Est Glom Filt Rate - Afr Amer 103 mL/min (>60); Glucose 93 mg/dL (74-106); Potassium 3.9 mmol/L (3.5-5.1); Sodium Level 134 mmol/L (136-145)
[2024-01-12] MEDS: Diphth,Pertuss(Acell),Tet Vac 0.5 ML Vial IM (02:34)
[2024-01-12 02:36] LABS: Bedside Glucose 117 mg/dL (74-106)
[2024-01-12] MEDS: Lidocaine/Epi/Tetracaine 50 ML 1 APPLIC TOPICAL (02:37)
[2024-01-12] MEDS: Lidocaine 1% /Epi 1:100 (20ml) 20 ML Vial INFILT (02:37)
[2024-01-12 02:53] LABS: Amphetamine Urine VISTA NEGATIVE (<1000 ng/mL); Barbiturate Urine VISTA NEGATIVE (< 200 ng/mL); Benzodiazepine Urine VISTA NEGATIVE (< 200 ng/mL); Cocaine Urine VISTA NEGATIVE (< 300 ng/mL); Ecstacy Urine VISTA NEGATIVE (< 500 ng/mL); Methadone Urine VISTA NEGATIVE (< 300 ng/mL); PCP Urine VISTA NEGATIVE (< 25 ng/mL); THC Urine VISTA NEGATIVE (< 50 ng/mL); Vista UDS pH Range 4
--- NOTE | 2024-01-12 04:01 | ED.RN ---
Patient asked this nurse to call ex-. This nurse called and information was given per patient request. Daughter Lisa then called in. Lisa not listed on contacts but patient gave this nurse permission for this nurse to share information with her.
[2024-01-12 05:35] VITALS: PULSE 78; RESP 18; O2SAT 98
[2024-01-12 07:00] VITALS: BP 134/78; PULSE 64; RESP 16; TEMP 36.6; O2SAT 98
[2024-01-12 10:23] VITALS: BP 132/78; PULSE 64; RESP 16; TEMP 36.4; O2SAT 99
== END 2024-01-12 10:24 | disposition home or self-care (01) ==
PROVIDERS: Emergency Provider Emergency Medicine; PCP Internal Medicine; Visit Provider Emergency Medicine
DX: S01.01XA Laceration without foreign body of scalp, initial encounter (principal); F10.129 Alcohol abuse with intoxication, unspecified; Y90.7 Blood alcohol level of 200-239 mg/100 ml; X58.XXXA Exposure to other specified factors, initial encounter; F32.A Depression, unspecified; F17.210 Nicotine dependence, cigarettes, uncomplicated; Z23 Encounter for immunization
CPT/HCPCS: 12002; 36415; 70450; 80048; 80307; 80320; 82962; 85025; 90715; 96372; 99284; A4216; G0480; J3486

== ENCOUNTER → 2025-07-17 | Outpatient (CLI) | payer MEDICARE, MEDICAID, SELFPAY | END | disposition home or self-care (01) | LOC: LABSPEC 15:34 | PROVIDERS: PCP Internal Medicine; Referring Provider Urology; Visit Provider Urology | DX: N30.01 Acute cystitis with hematuria (principal) | CPT/HCPCS: 87077; 87086; 87088; 87186 ==

== ENCOUNTER → 2025-10-26 | Outpatient (CLI) | payer MEDICARE, MEDICAID, SELFPAY | END | disposition home or self-care (01) | PROVIDERS: PCP Internal Medicine; Referring Provider Urology; Visit Provider Urology | DX: N30.01 Acute cystitis with hematuria (principal) | CPT/HCPCS: 87077; 87086; 87088; 87186 ==